=== PATIENT | male | born 1965 | race Caucasian/White ===

== ENCOUNTER 2022-11-15 09:22 | Inpatient (IN) | payer OTHER ==
--- OUTSIDE RECORDS SUMMARY | 2022-11-15 09:29 | XMS REPORT | Continuity of Care Document ---
:1965 Author Organization [facility] t Address [address] [place] [address] Care Team Providers Name Role Phone Maco Garcia MD Primary Care Physician [phone] Ynes Laguerre MD Attending Clinician Ryan SULLIVAN, Leon Schilling Attending Clinician Kellie SULLIVAN, Carmella Cruz Attending Clinician [phone] Gerardo YUSUF, Anastasiia Cerda Attending Clinician Michelle Cope Attending Clinician Unavailable Thomas Mcnair MD Attending Clinician Aron SULLIVAN, Phuc Willsonh Attending Clinician Santiago Bains MD Attending Clinician Tennille Burch DO Attending Clinician SARA_Evaristo Attending Clinician Unavailable Boyd Oakley NP Attending Clinician [phone] Thom Beebe MD Attending Clinician Germaine Kenny CRNA Attending Clinician Rip Alvarado Attending Clinician Nurse, Nichole Fam Pob I Attending Clinician Unavailable Alvaro Rivera MD Attending Clinician Pcp, Patient Does Not Have A Attending Clinician [phone] Lab, Adc Fam Pob I Attending Clinician Unavailable Jessica Leiva Attending Clinician JESSICA BONILLA Attending Clinician Unavailable Doctor Unassigned, [place] Attending Clinician Unavailable PHUC SHARP Admitting Clinician Unavailable Jesenia Admitting Clinician Unavailable LEON DAVIS Admitting Clinician Unavailable Payers Payer Name Policy Type Policy Number Effective Date Expiration Date Claudia higgins AET[employer] (POS) [id number] 2002 00:00:00 [employer] CHOICE POS [id number] 2018 00:00:00 II Problems Condition Condition Condition Status Onset Resolution Last Treating Co mments Source Name Details Category Date Date Treatment Clinician Date Other Other Disease Active Methodi acute acute 05-08 pulmonary pulmonary 00:00: Hosp timur embolism embolism 00 l without without acute cor acute cor pulmonale pulmonale Prostate Prostate Disease Active Metho di cancer cancer 04-29 st 00:00: Hospita 00 l 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 00:21:26 l (disorder) (disorder) He rmann Active Problem 03/02/2021 [facility] 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 Da n (disorder) (disorder) Active Problem 03/02/2021 [facility] Pain in Pain in Problem Active 2021-03-02 Me moria elbow elbow 00:21:26 l (finding) (finding) Herm reynold Active Problem 03/02/2021 [facility] Paresthesi Paresthes Problem Active 2021-03-02 Memoria a ia 00:21:26 l (finding) (finding) Herm reynold Active Problem 03/02/2021 [facility] Allergies, Adverse Reactions, Alerts Allergy Allergy Status Severity Reaction(s) Onset Inactive Treating Comm ents Source Name Type Date Date Clinician Ketorola Propensi Active Other (See Severe Me thodi c ty to Comments) 03-[address] adverse 00:00: on Hospita reaction 00 l s to drug Toradol Toradol Active Memoria l Jaime NO KNOWN Drug Active [facility] ALLERG[facility] of [facility] Social History Social Habit Start Date Stop Date Quantity Comments Source Exposure to Not sure [facility]-CoV-2 [facility] (event) Branch Alcohol intake 2022-06-28 2022-06-28 [facility] 00:00:00 00:00:00 non-drinker (finding) Tobacco use and 2022-04-13 2022-04-13 Smokeless tobacco [facility] exposure 00:00:00 00:00:00 non-user Social History 2020-11-03 2020-11-03 [facility] 21:54:11 21:54:11 Sex Ass[birth year] At [birth year] M [facility] 00:00:00 00:00:00 Smoking Status Start Date Stop Date Source Unknown if ever smoked [facility] Never smoked tobacco [facility] ospital Medications Ordered Filled Start Stop Current Ordering Indication Dosage Frequency Signature Comments Components Source Medication Medication Date Date Medication? Clinician (SIG) Name Name TADALAFIL Yes 25mg Q7D Take 25 mg Me thodi ORAL 7-[address] 12:46: once a Hospita 53 week. l Every Tuesday TADALAFIL Yes 7mg Take 7 mg Met hodi ORAL 7-[address] 12:46: take as Hospita 53 directed. l Daily Except Tuesday* acetaminoph Yes 650mg Q6H Take 650 M ethodi en 7-[address] (TYLENOL) 12:44: mouth Hospita 325 MG 44 every 6 l tablet (six) hours as needed for fever. ibuprofen Yes 200mg Q6H Take 200 Met hodi (ADVIL) 200 7-[address] MG tablet 12:22: mouth Hospita 09 every 6 l (six) hours as needed for mild pain. lansoprazol Yes 15mg Q24H Take 15 mg Methodi e 7-[address] (PREVACID) 12:22: daily as Hos richard 15 MG 09 needed. l capsule cephalexin 2021- No 500mg Q.25D Take 1 Me thodi (Keflex) 7-27 08-[address] 500 MG 00:00: 04:59 (500 mg Hospita capsule 00 :00 total) by l mouth 4 (four) times a day for 7 days. apixaban 2022-0 Yes 5mg Q.5D Take 1 Methodi (ELIQUIS) 5 7-04 tablet (5 st mg tablet 00:00: mg total) Hos richard 00 by mouth 2 l (two) times a day. benzonatate 2021- No 100mg Q.[id number] Take 1 Methodi (TESSALON) 05-[id number] 100 MG 00:00: 04:59 3D (100 mg Hospita capsule 00 :00 total) by l mouth 3 (three) times a day as needed for cough for up to 30 days. gabapentin 2021- No 300mg Q.[id number] Take 1 Methodi (NEURONTIN) 05-[id number] 300 mg 00:00: 04:59 3D (300 mg Hospita capsule 00 :00 total) by l mouth 3 (three) times a day for 30 days. polyethylen 2021- No 34g Q.5D Take 34 g Methodi e glycol 05-[address] (MIRALAX) 00:00: 04:59 (two) Hospit a 17 gram 00 :00 times a l packet day for 30 days. methocarbam 2021- No 750mg Q.25D Take 1 M ethodi oL 05-[address] (Robaxin-75 00:00: 04:59 (750 mg Ho spita 0) 750 MG 00 :00 total) by l tablet mouth 4 (four) times a day for 30 days. traMADoL 2021- [place] [address] 50mg Q.59884864 Take 1 Methodi (ULTRAM) 50 05-12 [id number] tablet (50 st mg tablet 00:00: 04:59 3D mg total) Ho spita 00 :00 by mouth 3 l (three) times a day for 10 days .acute pain. HYDROcodone 2021- [place] [id number] 1{tbl} Q6H Take 1 Methodi -acetaminop 05-[address] hen (NORCO) 00:00: 04:59 mouth Hosp timur 5-325 mg 00 :00 every 6 l per tablet (six) hours as needed for moderate pain for up to 10 days .acute pain. Max Daily Amount: 4 tablets apixaban 2021- No 10mg Q.5D Take 2 Method i (ELIQUIS) 5 05-12 07-[address] mg tablet 00:00: 04:59 (10 mg Hospi ta 00 :00 total) by l mouth 2 (two) times a day for 4 days. docusate 2021- No 100mg Q.5D Take 1 Metho di sodium 04-30-[address] (Colace) 00:00: 04:59 (100 mg Hospi ta 100 MG 00 :00 total) by l capsule mouth 2 (two) times a day for 30 days. traMADoL 2021- [place] [id number] 50mg Q6H Take 1 Metho di (ULTRAM) 50 04-30- tablet (50 s t mg tablet 00:00: 00:00 mg total) Ho spita 00 :00 by mouth l every 6 (six) hours as needed for moderate pain for up to 10 days .acute pain. ciprofloxac 2021- No 500mg Q.5D Take 1 Me thodi in (Cipro) 04-30-[address] 500 MG 00:00: 04:59 (500 mg Hospita tablet 00 :00 total) by l mouth 2 (two) times a day for 5 days. Start taking antibiotic 1 day before your appointmen t for blanco catheter removal. ciprofloxac 2021- No 500mg Q.5D Take 500 Methodi in (CIPRO) 04-27-[address] 500 MG 00:00: 00:00 mouth 2 Hospita tablet 00 :00 (two) l times a day. tadalafiL 2021- No 5mg QD Take 1 Metho di (CIALIS) 5 -31 11-28 tablet (5 st MG tablet 00:00: 05:59 mg total) Ho spita 00 :00 by mouth l daily for 180 days. tadalafiL 2021-0 2021- No 20mg Q1W Take 1 Metho di (CIALIS) 20 5-31 11-28 tablet (20 s t mg tablet 00:00: 05:59 mg total) Ho spita 00 :00 by mouth l every 7 days for 180 days. meloxicam Yes TAKE 1 Method i (MOBIC) 7.5 -[address] mg tablet 00:00: TIMES Hospita 00 DAILU WITH l FOOD AFTER STERIODS ARE COMPLETED predniSONE 2021- No TAKE 6 Meth eduard (DELTASONE) 03-15 TABLETS ON s t 10 mg 00:00: 00:00 DAY 1 AND Hospit a tablet pack 00 :00 DECREASE l BY 1 TAB EACH DAY FOR A TOTAL OF 6 DAYS IN A DOSE PACK meloxicam 2021- No Methodi (MOBIC) 7.5 03-15- st mg tablet 00:00: 00:00 Hospita 00 :00 l levoFLOXaci 2021- No 750mg Take 750 Methodi n 01-[address] (LEVAQUIN) 00:00: 00:00 mouth. Hosp timur 750 MG 00 :00 l tablet methylPREDN 2020-11- No Take as Me thodi ISolone 12-[address] (MEDROL 00:00: 00:00 on Hospita DOSEPAK) 4 00 :00 package. l mg tablet montelukast 2020-11- No 10mg Take 10 mg Methodi (SINGULAIR) 12-[address] 10 mg 00:00: 00:00 Hospita tablet 00 :00 l clonAZEPAM 2020-11 Yes .5mg QD Take 0.5 Met hodi (KlonoPIN) 1-[address] 0.5 MG 00:00: mouth Hospita tablet 00 nightly. l Per [place] [facility] on Drug Monitoring Program records: Last filled: 04/08/22 Quantity: 90 Days Supply: 90Has not restarted since holding five days prior to surgery on 04/30/22 Immunizations Ordered Immunization Filled Immunization Date Status Commen ts Source Name Name PFIZER COVID-19 MRNA 2022-08-30 Completed Meth odist VACCINATION 00:00:00 [facility] PFIZER COVID-19 MRNA 2021-10-15 Completed Meth odist VACCINATION 00:00:00 [facility] PFIZER COVID-19 MRNA 2021-02-28 Completed Meth odist VACCINATION 00:00:00 [facility] PFIZER COVID-19 MRNA 2021-02-08 Completed Meth odist VACCINATION 00:00:00 Hospital Vital Signs Vital Name Observation Time Observation Value Comments Source Systolic blood 2022-06-11 21:00:00 113 mm[Hg] [facility] pressure Diastolic blood 2022-06-11 21:00:00 66 mm[Hg] [facility] pressure Heart rate 2022-06-11 21:00:00 61 /min [facility] Respiratory rate 2022-06-11 21:00:00 16 /min [facility] Oxygen saturation in 2022-06-11 21:00:00 96 /min [facility] Arterial blood by Pulse oximetry Body temperature 2022-06-11 20:21:00 36.78 Bernadette [facility] Body height 2022-06-11 17:51:00 188 cm [facility] Body weight 2022-06-11 17:51:00 99.791 kg [facility] BMI 2022-06-11 17:51:00 28.25 kg/m2 [facility] Systolic (mm Hg) 2021-02-27 19:33:00 Harshad rial [place] Diastolic (mm Hg) 2021-02-27 19:33:00 [facility] orial Jaime Heart Rate 2021-02-27 19:33:00 [facility] Respitory Rate 2021-02-27 19:33:00 Memori al Jaime Weight 2021-02-27 19:33:00 [facility] Jaime Systolic (mm Hg) 2020-11-03 21:27:00 Harshad rial [place] Diastolic (mm Hg) 2020-11-03 21:27:00 [facility] orial [place] Heart Rate 2020-11-03 21:27:00 [facility] [place] Respitory Rate 2020-11-03 21:27:00 Memori al Jaime Height 2020-11-03 21:27:00 187.96 cm [facility] [place] Weight 2020-11-03 21:27:00 [facility] Jaime BMI Calculated 2020-11-03 21:27:00 Memori al [place] Procedures Procedure Date / Time Performing Clinician Source Performed US DUPLEX VENOUS LOWER 2022-09-08 19:30:00 Ynes Laguerre [facility] EXTREMITY BILATERAL PSA, ULTRASENSITIVE 2022-06-28 15:07:00 Leon Davis [facility] IR CATHETER TUBE CHANGE 2022-06-11 20:33:42 [facility] Anthony IR 3D RECON SLICES 2022-06-11 20:33:42 [facility] SNAPSHOTS RDMPS Anthony IR SCLEROTHERAPY FLUID 2022-06-09 20:14:00 Leon Davis [facility] COLLECTION CT PELVIS W CONTRAST 2022-05-21 19:15:00 Ryan Leon [facility] CBC WITH PLATELET AND 2022-05-12 10:21:00 [facility] DIFFERENTIAL BASIC METABOLIC PANEL 2022-05-12 10:21:00 [facility] ESTIMATED GFR 2022-05-12 10:21:00 [facility] SMEAR REVIEW 2022-05-12 10:21:00 [facility] CBC WITH PLATELET AND 2022-05-11 09:16:00 Aron [facility] DIFFERENTIAL BASIC METABOLIC PANEL 2022-05-11 09:16:00 [facility] ESTIMATED GFR 2022-05-11 09:16:00 [facility] PARTIAL THROMBOPLASTIN 2022-05-10 15:20:00 [facility] TIME (PTT) CREATININE LEVEL, [facility] 2022-05-10 10:30:00 En Child [facility] FLUID ZZCOVID-19 ANTI-SPIKE IGG 2022-05-10 08:37:00 Leo [facility] ANTIBODY TITER Farhan CBC WITH PLATELET AND 2022-05-10 08:37[facility] BASIC METABOLIC PANEL 2022-05-10 08:37:00 [facility] ZZCOVID-19 SEROLOGY 2022-05-10 08:37:00 Leo [facility] PATIENT SURVEILLANCE Farhan PARTIAL THROMBOPLASTIN 2022-05-10 08:37:00 [facility] TIME (PTT) ESTIMATED GFR 2022-05-10 08:37:00 Lock, [facility] PARTIAL THROMBOPLASTIN 2022-05-09 23:52:00 [facility], [facility] TIME (PTT) CT GUIDED ABSCESS DRAIN 2022-05-09 17:12:07 [facility] AEROBIC CULTURE 2022-05-09 16:20:00 Lock, [facility] ANAEROBIC CULTURE 2022-05-09 16:20:00 Lock, [facility] GRAM STAIN 2022-05-09 16:20:00 Lock, [facility] TTE COMPLETE, W CONTRAST, 2022-05-09 14:39:00 Lock, [facility] W DOPPLER ([id number]) PARTIAL THROMBOPLASTIN 2022-05-09 13:32:00 Thomas Mcnair [facility] TIME (PTT) CBC WITH PLATELET AND 2022-05-09 09:02:00 [facility], [facility] DIFFERENTIAL BASIC METABOLIC PANEL 2022-05-09 09:02:00 Lock, [facility] ESTIMATED GFR 2022-05-09 09:02:00 [facility], [facility] PARTIAL THROMBOPLASTIN 2022-05-09 04:59:00 Thomas Mcnair [facility] TIME (PTT) US DUPLEX VENOUS LOWER 2022-05-08 18:30:00 [facility] EXTREMITY BILATERAL LACTIC ACID LEVEL, SEPSIS 2022-05-08 17:17:00 Thomas Mcnair [facility] - NOW AND REPEAT 2X EVERY 3 HOURS PARTIAL THROMBOPLASTIN 2022-05-08 17:17:00 Thomas Mcnair [facility] TIME (PTT) PROTHROMBIN TIME WITH INR 2022-05-08 17:17:00 Thomas Mcnair Ryne [facility] ANTI XA, UNFRACTIONATED 2022-05-08 17:17:00 Thomas Mcnair [facility] CT ABDOMEN PELVIS W 2022-05-08 15:08:29 [facility] CONTRAST CT ANGIOGRAM PE CHEST 2022-05-08 15:08:07 [facility] BLOOD CULTURE, AEROBIC & 2022-05-08 13:03:00 [facility] ANAEROBIC RESPIRATORY PATHOGEN 2022-05-08 13:03:00 [facility] PANEL WITH COVID-19 RT-PCR LACTIC ACID LEVEL, SEPSIS 2022-05-08 13:03:00 [facility] - NOW AND REPEAT 2X EVERY 3 HOURS BLOOD CULTURE, AEROBIC & 2022-05-08 13:00:00 [facility] ANAEROBIC ECG ED PRELIMINARY 2022-05-08 11:18:28 [facility] INTERPRETATION URINE CULTURE 2022-05-08 10:53:00 [facility] XR ABDOMEN 1 VW PORTABLE 2022-05-08 10:45:00 [facility] XR CHEST 1 VW PORTABLE 2022-05-08 10:36:00 [facility] CBC WITH PLATELET AND 2022-05-08 10:17:00 [facility] DIFFERENTIAL COMPREHENSIVE METABOLIC 2022-05-08 10:17:00 [facility] PANEL LIPASE LEVEL 2022-05-08 10:17:00 [facility] URINALYSIS SCREEN AND 2022-05-08 10:17:00 [facility] MICROSCOPY, WITH REFLEX TO CULTURE ESTIMATED GFR 2022-05-08 10:17:00 [facility] FL CYSTOGRAM MINIMUM 3 VW 2022-05-06 14:05:00 Leon Davis [facility] HEMOGLOBIN 2022-04-30 09:34:00 Eliezer Mccain [facility] HEMATOCRIT 2022-04-30 09:34:00 Kal[facility] BASIC METABOLIC PANEL 2022-04-30 09:34:00 [facility] ESTIMATED GFR 2022-04-30 09:34:00 [facility] 2022-04-29 21:38:00 [facility] HEMOGLOBIN 2022-04-29 21:38:00 [facility] BASIC METABOLIC PANEL 2022-04-29 21:38:00 [facility] ESTIMATED GFR 2022-04-29 21:38:00 [facility] 2022-04-29 19:22:00 Leon Davis [facility] REQUEST LA AN ELECTIVE 2022-04-29 17:53:00 [facility] ENDOTRACHEAL AIRWAY Gena PROSTATECTOMY, 2022-04-29 17:48:00 [facility] LAPAROSCOPIC, ROBOT-ASSISTED HC NERVE BLOCK QUADRATUS 2022-04-29 17:42:07 Thom Isaac [facility] LUMBORUM ABO AND RH CONFIRMATION 2022-04-29 15:37:00 Leon Davis [facility] BY PROTOCOL COVID-19 QUALITATIVE 2022-04-26 18:37:00 [facility]-PCR TESTOSTERONE LEVEL, FREE 2022-04-13 15:32:00 CeleBoyd reeves [facility] AND TOTAL, MALE Sue TYPE AND SCREEN 2022-04-13 15:32:00 [facility] HIV 1/2 ANTIGEN/ANTIBODY, 2022-04-13 15:32:00 [facility] FOURTH GENERATION, WITH Sue REFLEXES COMPREHENSIVE METABOLIC 2022-04-13 15:32:00 [facility] PANEL Sue CBC WITH PLATELET AND 2022-04-13 15:32:00 [facility] Boyd [facility] DIFFERENTIAL Sue PROTHROMBIN TIME WITH INR 2022-04-13 15:32:00 [facility] PARTIAL THROMBOPLASTIN 2022-04-13 15:32:00 [facility] TIME (PTT) Sue ESTIMATED GFR 2022-04-13 15:32:00 Boyd Oakley kip Rogers HEMOGLOBIN A1C 2022-04-13 15:32:00 Aneudy Marscy Lucille [facility] URINE CULTURE 2022-04-13 15:27:00 Boyd Oakley kip Rogers URINALYSIS SCREEN AND 2022-04-13 15:27:00 Center [facility]wichBoyd [facility] MICROSCOPY, WITH REFLEX Sue TO CULTURE MRI PROSTATE WWO CONTRAST 2022-03-29 00:00:00 Leon Davis [facility] Laminectomy for [facility] decompression and exploration Plan of Care Planned Activity Planned Date Details Comments Source Future Scheduled 2022-11-15 Pneumococcal Vaccine: [facility] Test 09:26:08 Pediatrics (0 to 5 Years) and At-Risk Patients (6 to 64 Years) (1 - PCV) [code = Pneumococcal Vaccine: Pediatrics (0 to 5 Years) and At-Risk Patients (6 to 64 Years) (1 - PCV)] Future Scheduled 2022-11-15 Hepatitis C screening [facility] Test 09:26:08 (procedure) [code = 936138936] Future Scheduled 2022-11-15 COLONOSCOPY SCREENING [facility] Test 09:26:08 [code = COLONOSCOPY SCREENING] Future Scheduled 2022-11-15 SHINGLES VACCINES (1 Met [facility] Test 09:26:08 of 2) [code = SHINGLES VACCINES (1 of 2)] Future Scheduled 2022-11-15 INFLUENZA VACCINE Method [facility] Test 09:26:08 [code = INFLUENZA VACCINE] Future Scheduled 2022-11-15 COVID-19 VACCINE (5 - [facility] Test 09:26:08 Booster for Pfizer series) [code = COVID-19 VACCINE (5 - Booster for Pfizer series)] Encounters Start End Encounter Admission Attending Care Care Encounter Source Date/Time Date/Time Type Type Clinicians Facility Department ID 2022-09-08 2022-09-08 [facility] Ynes Laguerre 1.2.840.1 [id number] Methodi 12:52:06 23:59:00 Encounter Karolina 48681.1.[address] 3.430.2.7 Hospit a .3.102092 l .8 2022-09-08 2022-09-08 Travel 1.2.840.1 1.2.647.504 [id number] [id number] Methodi 00:00:00 00:00:[address] 3.430.2.7 0.2.7.3.698 Ho spita .3.434805 084.8 l .8 2022-09-08 2022-09-08 Raquel Ynes [facility] [id number] [place] 00:00:00 00:00:[address] 2022-08-27 2022-08-27 Travel 1.2.840.1 1.2.964.569 [id number] Methodi 00:00:00 00:00:[address] 3.430.2.7 0.2.7.3.698 Ho spita .3.387236 084.8 l .8 2022-08-10 2022-08-10 Ynes Dejesus 1.2.840.1 [id number] Methodi 00:00:00 00:00:00 Only Karolina 68658.1.[address] 3.430.2.7 Hospit a .3.535444 l .8 2022-06-28 2022-06-28 Office Miles, 1.2.840.1 [id number] Methodi 09:15:00 10:01:01 Visit Leon Schilling 08757.1.[address] 3.430.2.7 Hospit a .3.427107 l .8 2022-06-28 2022-06-28 Travel 1.2.840.1 1.2.639.567 [id number] [id number] Methodi 00:00:00 00:00:[address] 3.430.2.7 0.2.7.3.698 Ho spita .3.003682 084.8 l .8 2022-06-28 2022-06-28 Outpatient [facility] [id number] [place] 00:00:00 00:00:00 LEON Perez [facility] 2022-06-16 2022-06-16 Travel 1.2.840.1 1.2.635.545 5066 [id number] Methodi 00:00:00 00:00:[address] 3.430.2.7 0.2.7.3.698 Ho spita .3.193201 084.8 l .8 2022-06-15 2022-06-15 [facility] 1.2.840.1 [id number] [id number] Methodi 00:00:00 00:00:00 Leon Schilling 62713.1.[address] 3.430.2.7 Hospit a .3.546993 l .8 2022-06-11 2022-06-11 [facility] 1.2.840.1 [id number] Methodi 12:08:02 23:59:00 Carmella Lackey 03387.1.1 517 s t Anthony 3.430.2.7 Hospit a .3.997112 l .8 2022-06-11 2022-06-11 Travel 1.2.840.1 1.2.989.141 5673 [id number] Methodi 00:00:00 00:00:[address] 3.430.2.7 0.2.7.3.698 Ho spita .3.667288 084.8 l .8 2022-06-11 2022-06-11 [facility] 450 [id number] [place] 00:00:00 00:00:00 , CARMELLA [address] 2022-06-09 2022-06-09 [facility] 1.2.840.1 [id number] Methodi 11:08:42 23:59:00 Encounter Leon Schilling 18872.1.1 005 s t 3.430.2.7 Hospit a .3.254607 l .8 2022-06-09 2022-06-09 Orders Gerardo, 1.2.840.1 [id number] Methodi 00:00:00 00:00:00 Only Anastasiia 56403.1.[address] Zaida 3.430.2.7 Hospit a .3.242777 l .8 2022-06-09 2022-06-09 Travel 1.2.840.1 1.2.367.916 8655 [id number] Methodi 00:00:00 00:00:[address] 3.430.2.7 0.2.7.3.698 Ho spita .3.625686 084.8 l .8 2022-06-09 2022-06-09 [facility] [id number] [place] 00:00:00 00:00:00 LEON Marks [facility] i [facility] 2022-06-01 2022-06-01 Transcribe [facility] 1.2.840.1 [id number] Methodi 00:00:00 00:00:00 Orders Leon Schilling 91098.1.[address] 3.430.2.7 Hospit a .3.741901 l .8 2022-06-01 2022-06-01 Travel 1.2.840.1 1.2.535.594 1838 [id number] Methodi 00:00:00 00:00:[address] 3.430.2.7 0.2.7.3.698 Ho spita .3.909796 084.8 l .8 2022-05-26 2022-05-26 Telephone Anatoliy, 1.2.840.1 [id number] [id number] Methodi 00:00:00 00:00:[address] 3.430.2.7 Hospit a .3.952763 l .8 2022-05-26 2022-05-26 Telephone Anatoliy, 1.2.840.1 [id number] 2099 [id number] Methodi 00:00:00 00:00:[address] 3.430.2.7 Hospit a .3.611787 l .8 2022-05-21 2022-05-21 [facility], 1.2.840.1 [id number] Methodi 13:17:34 23:59:00 Encounter Leon Schilling 84394.1.1 039 s t 3.430.2.7 Hospit a .3.099226 l .8 2022-05-21 2022-05-21 Travel 1.2.840.1 1.2.153.987 0215 [id number] Methodi 00:00:00 00:00:[address] 3.430.2.7 0.2.7.3.698 Ho spita .3.663258 084.8 l .8 2022-05-21 2022-05-21 Outpatient [facility] [id number] [address] [place] [address] 00:00:00 00:00:00 LEON Palacios [facility] i [facility] 2022-05-18 2022-05-18 Travel 1.2.840.1 1.2.913.841 [id number] Methodi 00:00:00 00:00:[address] 3.430.2.7 0.2.7.3.698 Ho spita .3.751980 084.8 l .8 2022-05-18 2022-05-18 Telephone Miles, 1.2.840.1 [id number] 2099 [id number] Methodi 00:00:00 00:00:00 Leon Schilling 89868.1.[address] 3.430.2.7 Hospit a .3.516033 l .8 2022-05-08 2022-05-12 [facility] 1.2.840.1 [id number] Methodi 04:24:00 12:53:00 Encounter Phuc Sharp [facility] 42661.1.[address] Nara Santiago 3.430.2.7 H [place]ille White .3.327612 l .8 2022-05-12 2022-05-12 Telephone Miles, 1.2.840.1 [id number] [id number] Methodi 00:00:00 00:00:00 Leon Schilling [address]20.1.[address] 3.430.2.7 Hospit a .3.855440 l .8 2022-05-08 2022-05-12 Inpatient RENETTA, [facility] [place] 064 [id number] [place] 00:00:00 00:00:00 TENNILLE Penaloza8 Mara betito 2022-05-07 2022-05-07 Outpatient SARA_Farhan AOSM AOSM [id number] [place] 12:00:00 12:00:00 [place] [id number] [facility] 2022-05-06 2022-05-06 [facility] [place], 1.2.840.1 [id number] Methodi 08:00:00 23:59:00 Encounter Leon Schilling 08220.1.1 456 s t 3.430.2.7 Hospit a .3.118022 l .8 2022-05-06 2022-05-06 Office [facility] [place], 1.2.840.1 [id number] 12490 Methodi 09:30:00 10:00:00 Visit Boyd 06432.1.[address] [place] 3.430.2.7 Hospit a .3.948083 l .8 2022-05-06 2022-05-06 Travel 1.2.840.1 1.2.823.396 8447 [id number] Methodi 00:00:00 00:00:[address] 3.430.2.7 0.2.7.3.698 spita .3.770965 084.8 l .8 2022-05-06 2022-05-06 Outpatient RYAN, [facility] [id number] [place] 00:00:00 00:00:00 LEON Arriola Method i 2022-05-06 2022-05-06 Outpatient [facility] [id number] [place] 00:00:00 00:00:[address] 2022-05-01 2022-05-01 Outpatient SARA_Farhan ANTONIO AO 562 [id number] [place] 01:39:00 01:39:00 [place] 231035 Orth ope dic Sports Medicin e 2022-04-29 2022-04-30 [facility] [place], 1.2.840.1 [id number] 67782 49686 Methodi 09:46:00 18:37:00 Encounter Leon Schilling 48236.1.1 975 s t 3.430.2.7 Hospit a .3.733968 l .8 2022-04-29 2022-04-30 Outpatient [facility] 233 [id number] 142 [place] 00:00:00 00:00:00 LEON [address] 2022-04-29 2022-04-29 Surgery [place], 1.2.840.1 [id number] [id number] 2612 Methodi 12:30:00 17:20:00 Leon Schilling 86169.1.[address] 3.430.2.7 Hospit a .3.513315 l .8 2022-04-29 2022-04-29 Anesthesia Thom Isaac 1.2.840.1 [id number] Methodi 12:48:00 16:38:00 Event Germaine Kenny 79131.1.[address] 3.430.2.7 Hospit a .3.983554 l .8 2022-04-26 2022-04-26 [facility] 1.2.840.1 [id number] 5116 Methodi 14:00:00 14:10:00 Leon Schilling 28748.1.[address] 3.430.2.7 Hospit a .3.752751 l .8 2022-04-26 2022-04-26 [facility] [id number] [place] 00:00:00 00:00:00 LEON [address] 2022-04-20 2022-04-20 Travel 1.2.840.1 1.2.154.108 3111 [id number] Methodi 00:00:00 00:00:[address] 3.430.2.7 0.2.7.3.698 Ho spita .3.849890 084.8 l .8 2022-04-13 2022-04-13 Pre-Admiss [place], 1.2.840.1 [id number] 939 [id number] Methodi 12:30:00 13:30:00 ion Leon Schilling 32443.1.[address] Testing 3.430.2.7 Hospit a .3.174709 l .8 2022-04-13 2022-04-13 Office [place], 1.2.840.1 [id number] 81677 Methodi 08:00:00 08:30:00 Visit Boyd 02542.1.[address] Sue 3.430.2.7 Hospit a .3.318183 l .8 2022-04-13 2022-04-13 Travel 1.2.840.1 1.2.133.316 9307 [id number] Methodi 00:00:00 00:00:[address] 3.430.2.7 0.2.7.3.698 Ho spita .3.397031 084.8 l .8 2022-04-13 2022-04-13 Outpatient [facility] [id number] [place] 00:00:00 00:00:[address] 2022-04-13 2022-04-13 Outpatient DOVER, [facility] [id number] 218 [place] 00:00:00 00:00:00 LEON [address] 2022-04-01 2022-04-01 Orders [place], 1.2.840.1 [id number] 9042 Methodi 00:00:00 00:00:00 Only Leon Schilling 34701.1.[address] 3.430.2.7 Hospit a .3.991203 l .8 2022-03-19 2022-03-19 Telephone [place], 1.2.840.1 [id number] 2100 692182 Methodi 00:00:00 00:00:00 Leon Schilling 52437.1.[address] 3.430.2.7 Hospit a .3.533374 l .8 2022-03-19 2022-03-19 Transcribe [place], 1.2.840.1 [id number] 029 [id number] Methodi 00:00:00 00:00:00 Orders Leon Schilling 65065.1.[address] 3.430.2.7 Hospit a .3.635639 l .8 2022-03-15 2022-03-15 Telephone [place], 1.2.840.1 [id number] 2100 [id number] Methodi 00:00:00 00:00:00 Leon E[address]reeti [address] 3.430.2.7 Hospit a .3.283927 l .8 2022-03-15 2022-03-15 Travel 1.2.840.1 1.2.159.628 1575 [id number] Methodi 00:00:00 00:00:[address] 3.430.2.7 0.2.7.3.698 Ho spita .3.096087 084.8 l .8 2022-03-12 2022-03-12 Orders [place], 1.2.840.1 [id number] 656923 0162 Methodi 00:00:00 00:00:00 Only Leon Schilling 46043.1.[address] 3.430.2.7 Hospit a .3.498484 l .8 2022-03-10 2022-03-10 Office [place], 1.2.840.1 [id number] 669805 9449 Methodi 11:00:00 12:20:15 Visit Leon JPreeti 33341.1.[address] 3.430.2.7 Hospit a .3.722782 l .8 2022-03-10 2022-03-10 Travel 1.2.840.1 1.2.474.767 0372 098657 Methodi 00:00:00 00:00:[address] 3.430.2.7 0.2.7.3.698 Ho spita .3.308254 084.8 l .8 2022-03-10 2022-03-10 Outpatient [facility] [id number] [address] [place] [address] 00:00:00 00:00:00 LEON [address] 2021-03-01 2021-03-01 Outpatient [facility] [id number] Univers 13:35:00 13:35:00 [facility] 2021-02-28 2021-02-28 Outpatient [facility] [id number] Univers 13:35:00 13:35:00 [facility] 2021-02-27 2021-02-28 Outpatient nullFlavo MNA [id number] Memoria 19:15:00 04:59:59 r Neurology 03 l Landers Jaime 2021-02-27 2021-02-28 Outpatient nullFlavo MNA [id number] Memoria 19:15:00 04:59:59 r Neurology 03 l Arlen Sandoval 2021-02-27 2021-02-27 Outpatient ZOË AlvaradoSCHER MHMISCHER [id number] 14:15:00 23:59:59 Rip Natalia Real 2021-02-27 2021-02-27 Outpatient MHIE MHIE [id number] [place] 14:15:00 14:15:00 03 christian Sandoval 2021-02-08 2021-02-08 Outpatient [facility] [id number] Univers 13:40:00 13:40:00 [facility] 2020-12-12 2020-12-12 Ambulatory nullFlavo MNA [id number] Memoria 19:00:00 19:00:00 Pre-Reg r Neurology 01 l Landers Jaime 2020-12-12 2020-12-12 Ambulatory nullFlavo MNA [id number] Memoria 19:00:00 19:00:00 Pre-Reg r Neurology 01 l Arlen Sandoval 2020-12-12 2020-12-12 Outpatient MHIE MHIE [id number] [facility]oria 13:00:00 13:00:00 01 christian Sandoval 2020-12-12 2020-12-12 Outpatient ZOË AlvaradoSCHER MHMISCHER 871 [id number] 13:00:00 13:00:00 Rip Aimee Real 2020-11-27 2020-11-27 Outpatient MHIE MHIE [id number] Memoria 08:15:00 08:15:00 02 christian Sandoval 2020-11-27 2020-11-27 Outpatient MHIE MHIE [id number] Memoria 08:15:00 08:15:00 02 l Jaime 2020-11-03 2020-11-04 Outpatient nullFlavo MNA [id number] Memoria 21:30:00 05:59:59 r Neurology 00 l Arlen Sandoval 2020-11-03 2020-11-04 Outpatient nullFlavo MNA [id number] Memoria 21:30:00 05:59:59 r Neurology 00 l Arlen Jaime 2020-11-03 2020-11-03 [facility] [id number] 15:30:00 23:59:59 Rip 00 Farhan 2020-11-03 2020-11-03 Outpatient MHIE MHIE [id number] [place] 15:30:00 15:30:00 00 l [place] 2020-10-24 2020-10-24 Telephone Nurse, [facility] 1.2.840.114 [id number] Univers 00:00:00 00:00:00 Fam Pob I Health 350.1.13.10 [place] 4.2.7.2.686 El as Professio [phone] [facility] [address] 2020-10-18 2020-10-18 Letter VAL Rivera 1.2.840.114 [id number] Univers 00:00:00 00:00:00 (Out) Alvaro New SETH 350.1.13.10 i ty of HOSPITAL 4.2.7.2.686 El as [phone] [address] 2020-10-17 2020-10-17 Telephone PcpVAL 1.2.000.935 2007 [id number] Univers 00:00:00 00:00:00 Patient SETH 350.1.13.10 it y of Does Not HOSPITAL 4[place].2.686 [place] A [id number] [address] 2020-10-15 2020-10-15 Laboratory Lab, [facility] Fam Pob I [facility] 1.2. 840.114 [id number] Univers 14:30:42 14:50:42 Only Jessica [facility] 350.1.13.10 [place] 4.2.7.2.686 El as Professio [phone] La dical nal [address] 2020-10-15 2020-10-15 Outpatient R CHAD [facility] [id number] Univers 14:40:00 14:40:00 JESSICA ity of [facility] 2020-10-15 2020-10-15 Letter Doctor VAL 1.2.840.114 [id number] Univers 00:00:00 00:00:00 (Out) Unassigned, SETH 350.1.13.10 ity of [place] [facility] 4.2.7.2.686 El as [phone] [facility] [address] Results Test Description Test Time Test Comments Results Result Comments Source PSA, ultrasensitive 2022-06-29 13:11:00 Test Item Value Reference Range Interpretation Comme nts PSA, ultrasensitive 0.009 ng/mL 0.000-4.000 Debra EC [place] (test code = 17364-0) method ology.According to the [place] [employer], Se rum PSA shoulddecrease and remain at undetectable le vels after radicalprostate ctomy. The AUA defines biochem ical recurrence as an initialPS A value 0.200 ng/mL or greate r followed by a subsequentconfi rmatory PSA value 0.200 ng/ mL or greater.Values obtained with different assay methods or kits cannot be usedinterchange ably. Results cannot be inter preted as absolute eviden ceof the presence or abs ence of malignant disea se. OSWALDO (test code = OSWALDO) Performed at: [address] [place] [address] [id number] Director: Rickie Menezes MD, Phone: [phone] [facility] [id number] 23:20:25 Test Item Value Reference Range Interpretation Comments Case number (test [id number] code = 4695548) Surgical pathology See link below for PDF report (test code = Lab Report 2255) Result status (test This is Supplemental code = 4552373) Report for [id number] [facility] [id number] 13:13:00 Test Item Value Reference Range Interpretation Comments Anaerobic No anaerobic Specimen culture isolate organisms InformationS pecimen (test code = isolated. Source: FluidS ecimen 58084-2) [id number] 19:24:00 Test Item Value Reference Range Interpretation Comments Aerobic culture No growth Specimen isolate (test after 3 days. InformationSp imen code = 61427-2) Source: Flui dSpecimen Site: [facility] [id number] 19:59:00 Test Item Value Reference Range Interpretation Comments Gram stain No organisms Specimen isolate (test [facility] code = 1469) Source: FluidSp ecimen Site: [facility] [id number] 18:16:00 Test Item Value Reference Range Interpretation Comments Urine culture No growth Specimen isolate (test after 24 Informatione [facility] code = 67267-9) hours Source: Urin eSpecimen Site: Clean cat ch [facility]OVID[facility] qualitative [id number] 03:58:09 Test Item Value Reference Interpretation Comments Range Interpretation (test Negative results do not code = 2918183) preclude COVID-19 infection and should not be used asthe sole basis for treatment or other patient management decisions. Negativeresults must be combined with clinical observations, patient history, andepidemiological information. COVID-19 qualitative Not-Detected Not-Detected RT-PCR result (test code = 84944-3) COVID-19 qualitative See link below for PDF Case Number: RT-PCR (test code = Lab Report [id number]) [facility] RNA [Presence] in Respiratory specimen by VERONIKA with probe [id number] 22:58:09 Test Item Value Reference Range Interpretation Comments SARS-CoV-2 (COVID-19) RNA Not detected [Presence] in Respiratory specimen by VERONIKA with probe detection (test code = 11406-6) Whether patient is employed in a Unknown healthcare setting (test code = 12397-3) Whether the patient has symptoms Unknown related to condition of interest (test code = 67156-0) Whether the patient was Unknown hospitalized for condition of interest (test code = 75046-6) Whether the patient was admitted Unknown to intensive care unit (ICU) for condition of interest (test code = 86953-7) Whether patient resides in a Unknown congregate care setting (test code = 48403-3) status (test code = Unknown 45147-2) Date and time of symptom onset Unknown (test code = 75428-0) DEXTER CALHOUN
[2022-11-15 10:31] LABS: Absolute Lymphocytes (CBC) 1.1 K/uL (0.7-4.9); Hematocrit 43.8 % (39.6-49.0); MCV 84.5 fL (80-100); MPV 8.5 fL (7.6-11.3); RBC Red Blood Cell Count 5.19 M/uL (4.33-5.43)
[2022-11-15 10:54] LABS: Albumin 3.7 g/dL (3.4-5.0); Bilirubin Total 0.6 mg/dL (0.2-1.0); Potassium 3.7 mmol/L (3.5-5.1); Protein, Total 7.8 g/dL (6.4-8.2); Troponin High Sensitivity 5.6 pg/mL (<58.9)
[2022-11-15 11:12] LABS: SARS-COV-2 RT PCR NEGATIVE (NEGATIVE)
--- NOTE | 2022-11-15 11:22 | RAD REPORT ---
EXAM DESCRIPTION: CT - Chest For Pe Angio - 11/15/2022 11:05 am CLINICAL HISTORY: sob, fever COMPARISON: Abdomen Pelvis W Contrast dated 11/15/2022 TECHNIQUE: Dynamically enhanced 3 mm thick images of the chest were obtained during administration o f approximately 150mL Isovue 370 IV contrast. Coronal and oblique MIP reconstruction images were gene rated and reviewed. Exam utilizes a protocol to evaluate the pulmonary arterial tree. All CT scans are performed using dose optimization technique as appropriate and may include automated exposure control or mA/KV adjustment according to patient size. FINDINGS: No pulmonary emboli are identified. The aorta as imaged shows no acute or suspicious finding. No pericardial thickening or effusion. No infiltrate or mass in the lung parenchyma. Minimal atelectasis in each posterior gutter No pleural effusion or pleural thickening. No mediastinal or hilar suspicious masses. No endobronchial lesions identified. No chest wall masses or abnormal axillary lymphadenopathy. IMPRESSION: No pulmonary emboli identified. No other significant or suspicious findings.
--- NOTE | 2022-11-15 11:26 | RAD REPORT ---
EXAM DESCRIPTION: CT - Abdomen Pelvis W Contrast - 11/15/2022 11:05 am CLINICAL HISTORY: abdominal pain, fever COMPARISON: CT ABD PELVIS W CONTRAST dated 04/23/2013 TECHNIQUE: Biphasic, helical CT imaging of the abdomen and pelvis was performed following 100 ml non -ionic IV contrast. Oral contrast: No. All CT scans are performed using dose optimization technique as appropriate and may include automated exposure control or mA/KV adjustment according to patient size. FINDINGS: No suspicious findings in the lung bases. Liver and spleen show no suspicious findings. Liver attenuation is borderline for fatty infiltration. Cholecystectomy clips are present. No abnormal biliary tree dilatation. No solid or cystic mass seen in the pancreatic parenchyma. No CT findings of pancreatitis. Symmetric renal function is seen with no hydronephrosis or suspicious renal mass. No pyelonephritis o r acute parenchymal process. No bladder abnormalities. No adrenal abnormalities. No dilated bowel loops or bowel wall thickening. Sigmoid colon is redundant extending to the anterior upper abdomen at the umbilical level. Moderate stool volume is seen from cecum to splenic flexure. A n acute colon process is not seen. No appendicitis findings. Appendectomy clip is evident. No free ai r, free fluid or inflammatory stranding. No mass or bulky lymphadenopathy. A less than 10 mm fat onl y umbilical hernia is present. Fat extends into the origin of each inguinal canal. No acute or pathologic bone finding. Disc bulge and endplate spurring changes are present at L5-S1. M ild foraminal stenosis present at this level. IMPRESSION: Contrast enhanced CT abdomen and pelvis showing no acute or emergent finding.
[2022-11-15] MEDS ORDERED: ONDANSETRON 4 MG/2 ML VIAL ONE (12:20)
[2022-11-15] MEDS ORDERED: Ringers Lactate 1,000 ML IV ONE (12:20)
[2022-11-15] MEDS ORDERED: MORPHINE 4 MG/ML SYR ONE (13:30)
--- NOTE | 2022-11-15 13:59 | ER ---
Nurse's Notes [facility] Name: Bronson Mirza Age: 57 yrs Sex: Male : 1965 Arrival Date: 11/15/2022 Time: 09:24 Bed 10 Private MD: Maco Garcia T Diagnosis: Acute pancreatitis Presentation: 11/15 09:51 Chief complaint: Patient states: abd pain that began Dale evening. Coronavirus ss screen: Client denies travel out of the [place] in the last 14 days. Ebola Screen: Patient denies exposure to infectious person. Patient denies travel to an Ebola-affected area in the 21 days before illness onset. Initial Sepsis Screen: Does the patient meet any 2 criteria? No. Patient's initial sepsis screen is negative. Does the patient have a suspected source of infection? No. Patient's initial sepsis screen is negative. Risk Assessment: Do you want to hurt yourself or someone else? Patient reports no desire to harm self or others. Onset of symptoms was November 12, 2022. 09:51 Method Of Arrival: Ambulatory ss 09:51 Acuity: ADRIENNE 3 ss Triage Assessment: 13:38 General: Appears in no apparent distress. Behavior is calm, cooperative, appropriate ap3 for age. Pain: Complains of pain in back and abdomen Pain does not radiate. Pain currently is 6 out of 10 on a pain scale. Pain began gradually, 2-3 days ago. Neuro: Level of Consciousness is awake, alert, obeys commands, Oriented to person, place, time, situation, Speech is normal. Cardiovascular: Patient's skin is warm and dry. Respiratory: Airway is patent Respiratory effort is even, unlabored, Respiratory pattern is regular, symmetrical. GI: Reports lower abdominal pain, upper abdominal pain. 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 - Social history:: Smoking status: Patient denies any tobacco usage or history of. Screenin:38 [facility] ED Fall Risk Assessment (Adult) History of falling in the last 3 months, ap3 including since admission. Abuse screen: Denies threats or abuse. Nutritional screening: No deficits noted. Tuberculosis screening: No symptoms or risk factors identified. Assessment: 18:10 GI: Bowel sounds present X 4 quads. Abd is soft X 4 quads. ap3 20:34 Reassessment: report called to Briseida MELENDEZ for room 410. bb Vital Signs: 09:51 BP 147 / 88; Pulse 57; Resp 16; Temp 98.6(O); Pulse Ox 100% on R/A; Weight 102.06 kg; ss Height 6 ft. 2 in. (187.96 cm); Pain 6/10; 13:38 BP 146 / 104; Pulse 64; ap3 20:32 BP 141 / 83; Pulse 58; Resp 16 S; Temp 98.4(O); Pulse Ox 96% on R/A; bb 09:51 Body Mass Index 28.89 (102.06 kg, 187.96 cm) ED Course: 09:24 Patient arrived in ED. mr 09:24 Maco aGrcia MD is Private Physician. mr 09:29 [facility] 09:29 Arianna Monroe MD is Attending Physician. [facility] 09:52 Triage completed. ss 09:52 Arm band placed on right wrist. ss 10:52 CMP Sent. rs5 10:52 Lipase Sent. rs5 10:52 Troponin High Sensitivity Sent. rs5 10:52 COVID-19/FLU A+B Sent. rs5 10:52 Blood Culture Adult (2) Sent. rs5 10:52 Inserted saline lock: 22 gauge in right antecubital area, using aseptic technique. rs5 Blood collected. 10:52 Inserted saline lock: 22 gauge in left antecubital area, using aseptic technique. Blood rs5 collected. 10:52 EKG done, by ED staff. rs5 10:53 COVID swab sent to lab. Flu and/or RSV swab sent to lab. rs5 11:07 CT Chest For PE Angio In Process Unspecified. EDMS 11:07 CT Abd/Pelvis - IV Contrast Only In Process Unspecified. EDMS 12:25 Kim Santana, NORA is Primary Nurse. ap3 13:39 Patient has correct armband on for positive identification. Bed in low position. Call ap3 light in reach. Side rails up X 1. Pulse ox on. NIBP on. Door closed. Noise minimized. Warm blanket given. 13:57 Guanaco Reyes MD is Hospitalizing Provider. [facility] 18:10 No provider procedures requiring assistance completed. Patient admitted, IV remains in ap3 place. 19:20 Primary Nurse role handed off by Kim Santana, RN mw2 Administered Medications: 12:25 Drug: Lactated Ringers Solution 1000 ml Route: IV; Rate: 1000 bolus; Site: left ap3 antecubital; 12:26 Drug: Zofran (Ondansetron) 4 mg Route: IVP; Site: left antecubital; ap3 13:22 Follow up: Response: No adverse reaction ap3 13:37 Drug: morphine 4 mg Route: IVP; Infused Over: 4 mins; Site: right antecubital; ap3 14:35 Follow up: Response: No adverse reaction; Pain is unchanged, physician notified ap3 14:35 Drug: Dilaudid (HYDROmorphone) 0.5 mg Route: IVP; Site: right antecubital; ap3 18:10 Follow up: Response: No adverse reaction; Pain is decreased ap3 Medication: 18:10 VIS not applicable for this client. ap3 Outcome: 13:58 Decision to Hospitalize by Provider. [facility] 20:35 Admitted to Tele accompanied by tech, via wheelchair, room 410, with chart, Report bb called to Briseida MELENDEZ 20:35 Condition: stable 20:35 Patient left the ED. antonio Signatures: Dispatcher [employer] EDMS Kurt Moore PA PA jmm Rivera, Mary mr BallardPayton RN RN Nikki Cazares RN RN Kim Santana RN RN ap3 Sam Schulte mw2 Tra Lino rs5 Corrections: (The following items were deleted from the chart) 09:54 09:52 Allergies: No Known Allergies; ss ss
--- NOTE | 2022-11-15 13:59 | EDPHYS ---
Physician Documentation [facility] Name: Bronson Mirza Age: 57 yrs Sex: Male : 1965 Arrival Date: 11/15/2022 Time: 09:24 Bed 10 Private MD: Maco Garcia T ED Physician Arianna Monroe HPI: 11/15 09:43 This 57 yrs old Male presents to ER via Ambulatory with complaints of Abdominal Pain. jmm 09:43 The patient presents with abdominal pain in the epigastric area. Onset: The jmm symptoms/episode began/occurred gradually, 1 day(s) ago. The symptoms radiate to Associated signs and symptoms: Pertinent positives: Pertinent negatives: fever. This is a 57-year-old male with a history of prostate cancer the presents emerged part with complaints of epigastric abdominal pain which radiates to his back. Symptoms began last night. Denies vomiting or diarrhea. Patient states he did have fever and chills 2 to 3 days ago that had resolved.. 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 - Social history:: Smoking status: Patient denies any tobacco usage or history of. ROS: 09:43 Constitutional: Negative for fever, chills, and weight loss, Cardiovascular: Negative jmm for chest pain, palpitations, and edema, Respiratory: Negative for shortness of breath, cough, wheezing, and pleuritic chest pain. 09:43 Abdomen/GI: Positive for abdominal pain. 09:43 All other systems are negative. Exam: 09:43 Constitutional: This is a well developed, well nourished patient who is awake, alert, jmm and in no acute distress. Head/Face: atraumatic. Eyes: EOMI, no conjunctival erythema appreciated ENT: Moist Mucus Membranes Neck: Trachea midline, Supple Chest/axilla: Normal chest wall appearance and motion. Cardiovascular: Regular rate and rhythm. No edema appreciated Respiratory: Normal respirations, no respiratory distress appreciated 09:43 Back: Normal ROM Skin: General appearance color normal MS/ Extremity: Moves all extremities, no obvious deformities appreciated, no edema noted to the lower extremities Neuro: Awake and alert Psych: Behavior is normal, Mood is normal, Patient is cooperative and pleasant 09:43 Abdomen/GI: Inspection: abdomen appears normal, Bowel sounds: normal, Palpation: soft, mild abdominal tenderness, in the epigastric area, right upper quadrant and left upper quadrant. Vital Signs: 09:51 BP 147 / 88; Pulse 57; Resp 16; Temp 98.6(O); Pulse Ox 100% on R/A; Weight 102.06 kg; ss Height 6 ft. 2 in. (187.96 cm); Pain 6/10; 13:38 BP 146 / 104; Pulse 64; ap3 20:32 BP 141 / 83; Pulse 58; Resp 16 S; Temp 98.4(O); Pulse Ox 96% on R/A; bb 09:51 Body Mass Index 28.89 (102.06 kg, 187.96 cm) ss MDM: 09:43 Patient medically screened. [facility] 13:56 Data reviewed: vital signs, nurses notes. Counseling: I had a detailed discussion with juan the patient and/or guardian regarding: the historical points, exam findings, and any diagnostic results supporting the discharge/admit diagnosis, lab results, radiology results, the need for further work-up and treatment in the hospital. ED course: I discussed the patient with RIVER Minaya NP whom accepted the patient to Dr. Joya's service. 11/15 09:44 Order name: CBC with Diff; Complete Time: 10:34 [facility] 11/15 09:44 Order name: CMP; Complete Time: 10:55 [facility] 11/15 09:44 Order name: Lipase; Complete Time: 10:55 [facility] 11/15 09:44 Order name: Troponin High Sensitivity; Complete Time: 10:55 [facility] 11/15 09:44 Order name: Lactate w/ 2H reflex if indic.; Complete Time: 10:55 [facility] 11/15 09:44 Order name: Blood Culture Adult (2) [facility] 11/15 09:53 Order name: COVID-19/FLU A+B; Complete Time: 11:13 [facility] 11/15 15:07 Order name: Hemoglobin A1c [facility] 11/15 15:07 Order name: Lipid Profile; Complete Time: 16:25 [facility] 11/15 15:07 Order name: Lipase [facility] 11/15 15:07 Order name: Lipase [facility] 11/15 15:11 Order name: NT PRO-BNP; Complete Time: 17:15 [facility] 11/15 15:11 Order name: T4 Free; Complete Time: 17:15 [facility] 11/15 15:11 Order name: Thyroid Stimulating Hormone; Complete Time: 17:15 [facility] 11/15 09:44 Order name: IV Saline Lock; Complete Time: 10:52 [facility] 11/15 09:44 Order name: Labs collected and sent; Complete Time: 10:52 [facility] 11/15 09:44 Order name: EKG - Nurse/Tech; Complete Time: 10:52 [facility] 11/15 09:44 Order name: CT Chest For PE Angio; Complete Time: 11:23 [facility] 11/15 09:44 Order name: CT Abd/Pelvis - IV Contrast Only; Complete Time: 11:35 [facility] 11/15 15:07 Order name: NPO [facility] 11/15 15:11 Order name: Urinalysis [facility] 11/15 15:11 Order name: Basic Metabolic Panel [facility] 11/15 15:11 Order name: Basic Metabolic Panel [facility] 11/15 15:11 Order name: CBC with Automated Diff [facility] 11/15 15:11 Order name: CBC with Automated Diff [facility] Administered Medications: 12:25 Drug: Lactated Ringers Solution 1000 ml Route: IV; Rate: 1000 bolus; Site: left ap3 antecubital; 12:26 Drug: Zofran (Ondansetron) 4 mg Route: IVP; Site: left antecubital; ap3 13:22 Follow up: Response: No adverse reaction ap3 13:37 Drug: morphine 4 mg Route: IVP; Infused Over: 4 mins; Site: right antecubital; ap3 14:35 Follow up: Response: No adverse reaction; Pain is unchanged, physician notified ap3 14:35 Drug: Dilaudid (HYDROmorphone) 0.5 mg Route: IVP; Site: right antecubital; ap3 18:10 Follow up: Response: No adverse reaction; Pain is decreased ap3 Disposition Summary: 11/15/22 13:58 Hospitalization Ordered Hospitalization Status: Observation mary Provider: Guanaco Reyes Location: Telemetry/MedSurg (observation) [facility] Condition: Stable jm Problem: new jmm Symptoms: are unchanged jmm Bed/Room Type: Standard [facility] Room Assignment: 410(11/15/22 18:32) dw Diagnosis - Acute pancreatitis [facility] Forms: - Medication Reconciliation Form [facility] - SBAR form [facility] Addendum: 11/19/2022 02:12 STAFF ATTESTATION STATEMENT: I was immediately available onsite in the emergency s d2 department for consultation in the care of this patient. I did not see or examine this patient. Arianna Monroe MD. Signatures: Dispatcher [employer] [facility] Margo Christian, RN RN dw Kurt Moore PA PA [facility] Nikki Cook RN RN Kim Santana RN RN ap3 Arianna Monroe MD MD sd2 Corrections: (The following items were deleted from the chart) 11/15 09:54 09:52 Allergies: No Known Allergies; [facility] 15:02 10:56 Abdomen Limited+US.RAD.BRZ ordered. [facility] 18:32 13:58 [facility] 18:32 18:32 [facility]
[2022-11-15] MEDS ORDERED: HYDROMORPHONE HCL 0.5 MG/0.5 ML INJ ONE (14:31)
[2022-11-15] MEDS ORDERED: MORPHINE 4 MG/ML SYR IV PRN (15:05)
[2022-11-15] MEDS ORDERED: ONDANSETRON 4 MG/2 ML VIAL IV PRN (15:09)
--- NOTE | 2022-11-15 15:12 | P.HP ---
Certification for Inpatient Patient admitted to: Observation With expected LOS: <2 Midnights Patient will require the following post-hospital care: None Practitioner: I am a practitioner with admitting privileges, knowledge of patient current condition, hospital course, and medical plan of care. Services: Services provided to patient in accordance with Admission requirements found in Title 42 Section 412.3 of the Code of Federal Regulations <Cj Kaiser - Last Filed: 11/16/22 04:58> Patient History Date of Service: 11/15/22 Reason for admission: Abdominal pain History of Present Illness: Patient is a 57-year-old male with a past medical history significant for prostate cancer, PE\DVT who presents with complaint of generalized abdominal pain onset yesterday. Patient reported that pain radiates to his back. Patient rated pain as 7/10 in severity and described pain as dull constant in quality. Patient reported Associated signs and symptoms of abdominal bloating\distention, poor appetite and mild shortness of breath. Patient denies any other signs or symptoms. Symptoms are aggravated or relieved by nothing. Patient decided to present to the hospital due to worsening symptoms. Of note, patient reported flulike symptoms--fever, rhinorrhea, chills 3 days ago but indicated that symptoms have all resolved. - Past Medical/Surgical History -: Prostrate CA -: DVT\PE -: Prostatectomy - Family History Family History: Reviewed- Non-Contributory - Social History Smoking Status: Never smoker Alcohol use: No CD- Drugs: No Caffeine use: No Place of Residence: Home <Cj Kaiser - Last Filed: 11/16/22 04:58> Date of Service: 11/16/22 <Guanaco Reyes - Last Filed: 11/16/22 19:06> Allergies ketorolac [From Toradol] Adverse Reaction (Severe, Verified 11/15/22 20:58) Anaphylaxis Home Medications: Apixaban [Eliquis] 1 tab PO BID 11/15/22 Review of Systems General: Other (Poor Appetite ), Unremarkable Eyes: Unremarkable ENT: Unremarkable Respiratory: Shortness of Breath Cardiovascular: Unremarkable Gastrointestinal: Abdominal Pain, Distention, Other (Abdominal bloating ) Genitourinary: Unremarkable Musculoskeletal: Unremarkable Integumentary: Unremarkable Neurological: Unremarkable Lymphatics: Unremarkable <Cj Kaiser - Last Filed: 11/16/22 04:58> Physical Examination - Physical Exam General: Alert, In no apparent distress, Oriented x3, Cooperative HEENT: Atraumatic, PERRLA, Mucous membr. moist/pink, EOMI, Sclerae nonicteric Neck: Supple, 2+ carotid pulse no bruit, No LAD, Without JVD or thyroid abnormality Respiratory: Clear to auscultation bilaterally, Normal air movement Cardiovascular: No edema, Regular rate/rhythm, Normal S1 S2 Capillary refill: <2 Seconds Gastrointestinal: Soft and benign, Distended, Tenderness Musculoskeletal: No clubbing, No swelling, No contractures, No erythema, No tenderness Integumentary: No rashes, No breakdown, No significant lesion Neurological: Normal speech, Normal tone, Normal affect Lymphatics: No axilla or inguinal lymphadenopathy - Studies Laboratory Data (last 24 hrs) 11/15/22 10:18: Sodium 136, Potassium 3.7, BUN 12, Creatinine 0.80, Glucose 110 H, Total Bilirubin 0.6, AST 28, ALT 72 H, Alkaline Phosphatase 107, Lipase 3381 H 11/15/22 10:18: WBC 9.00, Hgb 15.1, Hct 43.8, Plt Count 208 <Cj Kaiser - Last Filed: 11/16/22 04:58> - Studies Laboratory Data (last 24 hrs) 11/16/22 03:54: WBC 10.40, Hgb 13.8 D, Hct 39.7, Plt Count 196 11/16/22 03:54: Sodium 137, Potassium 3.8, BUN 11, Creatinine 0.74, Glucose 125 H, Lipase 680 H <Guanaco Reyes - Last Filed: 11/16/22 19:06> Assessment and Plan - Plan --Acute pancreatitis. CT abdomen does not indicate any acute intra-abdominal abnormality. Lipase elevated--3381. We will keep patient NPO. Patient denies any history of alcohol use but indicated a history of hypertriglyceridemia about 20 years ago which resolved after medication therapy. Lipid panel pending. Will reassess lipase in a.m. Continue supportive care. --Acute pain. We will manage pain with current pain medication regimen. --History of prostate cancer. Status post prostatectomy. Patient follow-up with an outpatient urologist. Continue supportive care. --History of PE\DVT. Continue Eliquis when appropriate. --Elevated blood pressure without diagnosis of hypertension. Will manage BP with hydrazine prn --DVT prophylaxis with SCDs. Continue chemical prophylaxis with Eliquis when appropriate. Discharge Plan: Home Plan to discharge in: 48 Hours - Advance Directives Does patient have a Living Will: No Does patient have a Durable POA for Healthcare: No - Code Status/Comfort Care Code Status Assessed: Yes Physician Review: Patient Assessed, Agree with Above Assessment and Plan Critical Care: No <Cj Kaiser - Last Filed: 11/16/22 04:58> Physician Review: Patient Assessed, Agree with Above Assessment and Plan <Guanaco Reyes - Last Filed: 11/16/22 19:06>
[2022-11-15 16:43] LABS: Thyroid Stimulating Hormone 2.14 uIU/mL (0.358-3.740)
[2022-11-15 21:00] VITALS: BMI 28.8
[2022-11-15] MEDS: D5 0.9 NS 1,000 ML IV SCH (21:04)
[2022-11-15] MEDS: HYDROMORPHONE HCL 1 MG/ML INJ IV PRN (21:04)
[2022-11-15] MEDS: APIXABAN 5 MG TABLET PO SCH (22:27)
[2022-11-16] MEDS: D5 0.9 NS 1,000 ML IV SCH ×3 (02:00→18:17)
[2022-11-16] MEDS: HYDROMORPHONE HCL 1 MG/ML INJ IV PRN ×4 (02:41→22:13)
[2022-11-16 04:50] LABS: Absolute Lymphocytes (CBC) 0.9 K/uL (0.7-4.9); Hematocrit 39.7 % (39.6-49.0); Lymphocytes % 8.8 % (15.3-44.8); MCV 85.2 fL (80-100); RBC Red Blood Cell Count 4.66 M/uL (4.33-5.43)
[2022-11-16] MEDS ORDERED: HYDRALAZINE HCL 20 MG/ML VIAL IV PRN (05:07)
[2022-11-16 05:19] LABS: Potassium 3.8 mmol/L (3.5-5.1)
[2022-11-16 07:48] LABS: Specific Gravity 1.028 (1.005-1.030); Urine Bacteria None Seen /HPF (<20); Urine Bilirubin NEGATIVE (Negative); Urine Blood 1+ (Negative); Urine Clarity Clear (Clear); Urine Color Yellow (Yellow); Urine Glucose NEGATIVE (Negative); Urine Mucus 2+ /HPF (None Seen); Urine Protein TRACE (Negative); Urine RBC <5 /HPF (None Seen); Urine Urobilinogen Normal (Normal)
[2022-11-16] MEDS ORDERED: APIXABAN 5 MG TABLET PO SCH (09:00)
[2022-11-16] MEDS ORDERED: ENOXAPARIN 40 MG/0.4 ML SQ SCH (09:00)
[2022-11-16] MEDS ORDERED: POTASSIUM CL SA 10 MEQ TAB PO ONE (09:00)
[2022-11-16] MEDS: APIXABAN 5 MG TABLET PO SCH ×2 (09:11→21:08)
[2022-11-16] MEDS: DICYCLOMINE HCL 10 MG CAP PO PRN (18:17)
--- NOTE | 2022-11-16 19:11 | P.PN ---
Subjective Date of Service: 11/16/22 Chief Complaint: Abdominal pain No acute events overnight. He reports that his abdominal pain is gradually improving. This morning, he graded it a 5-6/10 in severity. He denies any nausea/vomiting or diarrhea. Review of Systems 10-point ROS is otherwise unremarkable Gastrointestinal: Abdominal Pain (mid-epigastric) Physical Examination - Vital Signs Temperature: 97.9 F Blood Pressure: 159/86 Pulse: 72 Respirations: 16 Pulse Ox (%): 96 - Physical Exam General: Alert, In no apparent distress, Oriented x3 HEENT: Atraumatic, Mucous membr. moist/pink, EOMI, Sclerae nonicteric Neck: JVD not distended Respiratory: Clear to auscultation bilaterally, Normal air movement Cardiovascular: No edema, Regular rate/rhythm, Normal S1 S2, No gallops, No rubs, No murmurs Gastrointestinal: Normal bowel sounds, Soft and benign, Non-distended, No rebound, No guarding, Tenderness (mid-epigastric) Musculoskeletal: No clubbing Integumentary: No rashes Neurological: Normal speech, Cranial nerves 3-12 intact, Normal affect - Studies Laboratory Data (last 24 hrs) 11/16/22 03:54: WBC 10.40, Hgb 13.8 D, Hct 39.7, Plt Count 196 11/16/22 03:54: Sodium 137, Potassium 3.8, BUN 11, Creatinine 0.74, Glucose 125 H, Lipase 680 H Assessment And Plan - Plan # Acute Pancreatitis - BISAP score = 0 - Reports prior cholecystectomy, Denies alcohol use - Lipid panel = TC 179, HDL 49, LDL 113, TG 83 - NPO - advance diet as tolerated - Lactated Ringers @ 100 mL/hour - Pain control # History of Deep Venous Thrombosis/Pulmonary Embolism - Continue home apixaban # History of Prostate Cancer s/p Prostatectomy - Follow-up with Urologist as previously scheduled Guanaco Reyes M.D.
[2022-11-16] MEDS: Ringers Lactate 1,000 ML IV SCH (21:07)
[2022-11-17 04:33] LABS: Magnesium 1.9 mg/dL (1.6-2.4); Phosphorus 2.3 mg/dL (2.5-4.9); Potassium 3.8 mmol/L (3.5-5.1)
[2022-11-17] MEDS: Ringers Lactate 1,000 ML IV SCH ×3 (06:00→16:00)
[2022-11-17] MEDS: APIXABAN 5 MG TABLET PO SCH ×2 (08:34→20:51)
[2022-11-17] MEDS: DICYCLOMINE HCL 10 MG CAP PO PRN ×2 (08:34→20:51)
[2022-11-17] MEDS: POTASS/SODIUM PHOSPHATE 1 PKT POWD.PACK PO SCH (08:35)
[2022-11-17] MEDS ORDERED: POTASSIUM CL SA 10 MEQ TAB PO ONE (09:00)
[2022-11-17] MEDS ORDERED: POTASSIUM 25 MEQ EFFERV TAB PO ONE (09:00)
--- NOTE | 2022-11-17 15:44 | P.PN ---
Subjective Date of Service: 11/17/22 Chief Complaint: Abdominal pain No acute events overnight. He reports that his abdominal pain is gradually improving. This morning, he graded it a 3-4/10 in severity. He was able to tolerate the clear liquid diet, without any issues. He denies any nausea/vomiting or diarrhea. Review of Systems 10-point ROS is otherwise unremarkable Gastrointestinal: Abdominal Pain Physical Examination - Vital Signs Temperature: 98.2 F Blood Pressure: 137/80 Pulse: 75 Respirations: 16 Pulse Ox (%): 94 Assessment And Plan - Plan - Physical Exam General: Alert, In no apparent distress, Oriented x3 HEENT: Atraumatic, Mucous membr. moist/pink, Sclerae nonicteric Neck: JVD not distended Respiratory: Clear to auscultation bilaterally, Normal air movement Cardiovascular: No edema, Regular rate/rhythm, Normal S1 S2, No gallops, No rubs, No murmurs Gastrointestinal: Normal bowel sounds, Soft and benign, Non-distended, No rebound, No guarding, Tenderness (mid-epigastric) Musculoskeletal: No clubbing Integumentary: No rashes Neurological: Normal speech, Normal affect # Acute Pancreatitis - BISAP score = 0 - Reports prior cholecystectomy, Denies alcohol use - Lipid panel = TC 179, HDL 49, LDL 113, TG 83 - Started clear liquid diet - advance diet as tolerated - Lactated Ringers @ 100 mL/hour - Pain control # History of Deep Venous Thrombosis/Pulmonary Embolism - Continue home apixaban # History of Prostate Cancer s/p Prostatectomy - Follow-up with Urologist as previously scheduled Guanaco Reyes M.D.
--- NOTE | 2022-11-17 16:07 | EKG ---
Test Date: 2022-11-15 Test Time: 10:37:26 Cloth Presser: AURELIO MEASUREMENT RESULTS: Intervals: Rate: 51 RI: 190 QRSD: 96 QT: 420 QTc: 387 [place]: P: 42 RI: 190 QRS: 32 T: 31 INTERPRETIVE STATEMENTS: Sinus bradycardia Otherwise normal ECG Compared to ECG 04/18/2014 16:40:14 Sinus rhythm no longer present Sinus arrhythmia no longer present Electronically Signed On 11-17-22 16:05:25 SQL REPORT ANALYST by Aleksey De Guzman
[2022-11-18] MEDS: Ringers Lactate 1,000 ML IV SCH (02:27)
[2022-11-18 04:29] LABS: Phosphorus 2.2 mg/dL (2.5-4.9); Potassium 3.6 mmol/L (3.5-5.1)
--- NOTE | 2022-11-18 07:21 | P.DS ---
Admission Date: 11/15/22 Discharge Date: 11/18/22 Disposition: ROUTINE DISCHARGE Discharge Condition: GOOD Reason for Admission: Abdominal pain Hospital Course: DIAGNOSES: # Acute Pancreatitis # History of Deep Venous Thrombosis/Pulmonary Embolism # History of Prostate Cancer s/p Prostatectomy HOSPITAL COURSE: Mr. Bronson Mirza is a pleasant 57 year old male with a past medical history significant for prostate cancer s/p prostatectomy and prior DVT/PE on apixaban who was admitted to the [facility] on 11/15/2022 for abdominal pain. He was admitted to the Medicine service. Upon further evaluation, he was found to have acute pancreatitis. He was treated with IV fluids and placed NPO. He was gradually started on a diet and it was advanced until he was able to tolerate a regular diet, without any issues. Today, he was able to eat breakfast without any residual abdominal pain. He stated that he felt well and would like to be discharged home. On 11/18/2022, he was seen on morning rounds and deemed medically stable for discharge. He was discharged with instructions to schedule follow-up appointments with his PCP (Dr. Garcia) and with Gastroenterology (Dr. Ford). He was given the opportunity to ask questions and reported no further questions. Furthermore, all questions were answered to the best of my ability. A copy of this discharge summary will be sent to the above providers to facilitate continuity of care. Today, I personally spent 25 minutes on his case, of which greater than 50% of the time was spent in patient education, counseling, and coordination of care as described above. General: Alert, In no apparent distress, Oriented x3 HEENT: Atraumatic, Mucous membr. moist/pink, Sclerae nonicteric Neck: JVD not distended Respiratory: Clear to auscultation bilaterally, Normal air movement Cardiovascular: No edema, Regular rate/rhythm, Normal S1 S2, No gallops, No rubs, No murmurs Gastrointestinal: Soft and benign, Non-distended, No rebound, No guarding, No tenderness Musculoskeletal: No clubbing Integumentary: No rashes Neurological: Normal speech, Normal affect Vital Signs/Physical Exam: Temp Pulse Resp BP Pulse Ox 97.1 F 60 18 130/66 95 11/18/22 04:00 11/18/22 04:00 11/18/22 04:00 11/18/22 04:00 11/18/22 04:00 Laboratory Data at Discharge: WBC 10.40 K/uL (4.3-10.9) 11/16/22 03:54 Hgb 13.8 g/dL (13.6-17.9) D 11/16/22 03:54 Hct 39.7 % (39.6-49.0) 11/16/22 03:54 Plt Count 196 K/uL (152-406) 11/16/22 03:54 Sodium 137 mmol/L (136-145) D 11/18/22 04:00 Potassium 3.6 mmol/L (3.5-5.1) 11/18/22 04:00 BUN 10 mg/dL (7-18) 11/18/22 04:00 Creatinine 0.77 mg/dL (0.70-1.30) 11/18/22 04:00 Glucose 109 mg/dL (74-106) H 11/18/22 04:00 Phosphorus 2.2 mg/dL (2.5-4.9) L 11/18/22 04:00 Magnesium 1.9 mg/dL (1.6-2.4) 11/17/22 03:48 Total Bilirubin 0.6 mg/dL (0.2-1.0) 11/15/22 10:18 AST 28 U/L (15-37) 11/15/22 10:18 ALT 72 U/L (16-61) H 11/15/22 10:18 Alkaline Phosphatase 107 U/L (45-117) 11/15/22 10:18 Triglycerides 83 mg/dL (<150) 11/15/22 10:18 Cholesterol 179 mg/dL (<200) 11/15/22 10:18 HDL Cholesterol 49 mg/dL (40-60) 11/15/22 10:18 Cholesterol/HDL Ratio 3.65 11/15/22 10:18 Lipase 680 U/L (73-393) H 11/16/22 03:54 Home Medications: RX: Apixaban [Eliquis] 1 tab PO BID 11/15/22 Physician Discharge Instructions: 1. Please call and schedule a follow-up appointment with your PCP (Dr. Garcia) in 3-5 days 2. Please call and schedule a follow-up appointment with Gastroenterology (Dr. Ford) in 5-7 days Diet: Regular Activity: Ad idalia Followup: Maco aGrcia MD [Primary Care Provider] - 1 Week (Call for appointment.) Farhan Ford MD [ASSOCIATE-ACTIVE - CAN ADMIT] - 1 Week (Call for appointment.) Time spent managing pt's care (in minutes): 25
[2022-11-18] MEDS ORDERED: POTASS/SODIUM PHOSPHATE 1 PKT POWD.PACK PO SCH (08:00)
[2022-11-18] MEDS: APIXABAN 5 MG TABLET PO SCH (08:00)
[2022-11-18] MEDS: DICYCLOMINE HCL 10 MG CAP PO PRN (08:03)
[2022-11-18 08:08] VITALS: O2SAT 94
[2022-11-18 08:25] VITALS: BP 112/67; TEMP 97.2
[2022-11-18] MEDS ORDERED: POTASSIUM CL SA 10 MEQ TAB PO ONE (09:00)
== END 2022-11-18 09:40 | disposition home or self-care (01) | DRG 440 ==
LOC: ER 09:22 → ERHOLD 15:01 → 4TH 20:39 → OBSVTOIN 11-16 12:08
PROVIDERS: ADMIT Internal Medicine; ATTEND Internal Medicine
DX: K85.90 Acute pancreatitis without necrosis or infection, unspecified (principal); R03.0 Elevated blood-pressure reading, without diagnosis of hypertension; Z88.8 Allergy status to other drugs, medicaments and biological substances; Z90.49 Acquired absence of other specified parts of digestive tract; Z90.79 Acquired absence of other genital organ(s); Z85.46 Personal history of malignant neoplasm of prostate; Z79.01 Long term (current) use of anticoagulants; Z86.718 Personal history of other venous thrombosis and embolism; Z86.711 Personal history of pulmonary embolism; Z20.822 Contact with and (suspected) exposure to COVID-19
CPT/HCPCS: 0240U; 36415; 71275; 74177; 80048; 80053; 80061; 81001; 83036; 83605; 83690; 83735; 83880; 84100; 84439; 84443; 84484; 85025; 87040; 93005; 99285; G0378; J1170; J2405; J7042; J7120; Q9967

== ENCOUNTER 2023-05-24 10:41 | Emergency (ER) | payer OTHER ==
[2023-05-24] MEDS ORDERED: TDAP (DIPHTH,PERTUSS(ACELL),TET VAC) 0.5 ML VIAL IMVAC ONE (10:57)
[2023-05-24] MEDS ORDERED: DERMABOND SKIN ADHESIVE TOP ONE (10:57)
[2023-05-24] MEDS ORDERED: LIDOCAINE 1% MPF 5 ML VIAL ONE (10:57)
[2023-05-24] MEDS ORDERED: SILVER NITRATE 1 APPL TOP ONE (10:59)
--- NOTE | 2023-05-24 11:37 | RAD REPORT ---
EXAM DESCRIPTION: RAD - Hand Left 3 View - 05/24/2023 11:01 am CLINICAL HISTORY: L index finger crushing injury COMPARISON: No comparisons FINDINGS: Soft tissue swelling is present affecting the second finger. No fracture, dislocation or r adiopaque foreign body.
--- NOTE | 2023-05-24 11:46 | ER ---
Nurse's Notes [facility] Name: Bronson Mirza Age: 57 yrs Sex: Male : 1965 Arrival Date: 05/24/2023 Time: 10:41 Bed 6 Private MD: Diagnosis: Left index laceration, tissue avulsion Presentation: 05/24 10:42 Chief complaint: EMS states: pt got his left hand caught in a machine at work and now kc6 has a laceration to the left index finger. Coronavirus screen: At this time, the client does not indicate any symptoms associated with coronavirus-19. Ebola Screen: No symptoms or risks identified at this time. Initial Sepsis Screen: Does the patient meet any 2 criteria? No. Patient's initial sepsis screen is negative. Does the patient have a suspected source of infection? No. Patient's initial sepsis screen is negative. Risk Assessment: Do you want to hurt yourself or someone else? Patient reports no desire to harm self or others. Onset of symptoms was May 24, 2023. 10:42 Method Of Arrival: EMS: MARCIA galloway 10:42 Acuity: ADRIENNE 4 kc6 Triage Assessment: 10:44 General: Appears in no apparent distress. comfortable, Behavior is calm, cooperative, kc6 appropriate for age. Pain: Complains of pain in left hand. EENT: No signs and/or symptoms were reported regarding the EENT system. Neuro: Level of Consciousness is awake, alert, obeys commands, Oriented to person, place, time, situation, Appropriate for age. Cardiovascular: Capillary refill < 3 seconds. Respiratory: Airway is patent Trachea midline Respiratory effort is even, unlabored, Respiratory pattern is regular, symmetrical. Derm: Skin is pink, warm \T\ dry. Wound noted left hand. Musculoskeletal: No signs and/or symptoms reported regarding the musculoskeletal system. Circulation, motion, and sensation intact. Capillary refill < 3 seconds, Range of motion: intact in all extremities. 10:45 Injury Description: Avulsion sustained to left hand, left index finger. 6 Historical: - Allergies: 10:44 Toradol; kc6 - PMHx: 10:44 PE/ DVT after prostatectomy; PROSTATE CA; kc6 - PSHx: 10:44 Appendectomy; Cholecystectomy; prostatectomy; kc6 - Immunization history:: Client reports receiving the 2nd dose of the Covid vaccine, Flu vaccine is up to date. - Social history:: Smoking status: Patient denies any tobacco usage or history of. Screenin:45 [facility] ED Fall Risk Assessment (Adult) History of falling in the last 3 months, kc6 including since admission No falls in past 3 months (0 pts) Confusion or Disorientation No (0 pts) Intoxicated or Sedated No (0 pts) Impaired Gait No (0 pts) Mobility Assist Device Used No (0 pt) Altered Elimination No (0 pt) Score/Fall Risk Level 0 - 2 = Low Risk Oriented to surroundings, Maintained a safe environment, Educated pt \T\ family on fall prevention, incl call for assistance when getting out of bed, Assessed \T\ reinforced patient's understanding of fall precautions, Hourly rounding (assess needs \T\ fall precautionary measures) done. Abuse screen: Denies threats or abuse. Denies injuries from another. Nutritional screening: No deficits noted. Tuberculosis screening: No symptoms or risk factors identified. Assessment: 10:45 Reassessment: please see triage assessment. kc6 11:41 Reassessment: Patient appears in no apparent distress at this time. No changes from 6 previously documented assessment. Patient and/or family updated on plan of care and expected duration. Pain level reassessed. Patient is alert, oriented x 3, equal unlabored respirations, skin warm/dry/pink. 12:25 Reassessment: Patient appears in no apparent distress at this time. No changes from 6 previously documented assessment. Patient and/or family updated on plan of care and expected duration. Pain level reassessed. Patient is alert, oriented x 3, equal unlabored respirations, skin warm/dry/pink. Vital Signs: 10:42 BP 138 / 97; Pulse 62; Resp 16 S; Temp 98.7(O); Pulse Ox 98% on R/A; Weight 104.33 kg kc6 (R); Height 6 ft. 2 in. (R); 11:41 BP 146 / 92; Pulse 56; Resp 17 S; Pulse Ox 98% on R/A; kc6 10:42 Body Mass Index 29.53 (104.33 kg, 187.96 cm) kc6 ED Course: 10:42 Patient arrived in ED. kc6 10:43 Cristobal Andre MD is Attending Physician. jr11 10:44 Triage completed. kc6 10:44 Arm band placed on. kc6 10:45 Soha Ortega, RN is Primary Nurse. kc6 10:45 Patient has correct armband on for positive identification. Bed in low position. Call kc6 light in reach. Side rails up X2. 11:03 Hand Left 3 View XRAY In Process Unspecified. EDMS 12:25 No provider procedures requiring assistance completed. Patient did not have IV access kc6 during this emergency room visit. Administered Medications: 10:54 Drug: Tetanus-Diphtheria Toxoid IM Adult 0.5 ml {[employer] Pump Operator: [employer] kc6 Exp: 10/22/2023. Lot #: [id number]. } Route: IM; Site: right deltoid; 12:24 Follow up: Response: No adverse reaction kc6 10:54 Drug: Lidocaine Infiltration (1 %) 5 ml Volume: 5 ml; Route: Infiltration; kc6 12:24 Follow up: Response: No adverse reaction; Pain is decreased kc6 Medication: 12:25 VIS not applicable for this client. kc6 Outcome: 11:46 Discharge ordered by . seamus 12:25 Discharged to home ambulatory. kc6 12:25 Condition: improved 12:25 Discharge instructions given to patient, Instructed on discharge instructions, follow up and referral plans. medication usage, wound care, Demonstrated understanding of instructions, follow-up care, medications, wound care, Prescriptions given X 1. 12:32 Patient left the ED. kc6 Signatures: Dispatcher [employer] EDMS Cristobal Andre MD MD jr11 Soha Ortega, RN RN kc6
--- NOTE | 2023-05-24 11:47 | EDPHYS ---
Physician Documentation [facility] Name: Bronson Mirza Age: 57 yrs Sex: Male : 1965 Arrival Date: 05/24/2023 Time: 10:41 Bed 6 Private MD: ED Physician Cristobal Andre HPI: 05/24 10:52 Patient is a 57-year-old gentleman [facility] who got his left index finger tip crushed jr11 by a gear on a saw. Patient denies any other injuries. Pain is moderate, denies any other complaints. Tetanus is not up-to-date.. Historical: - Allergies: 10:44 Toradol; kc6 - PMHx: 10:44 PE/ DVT after prostatectomy; PROSTATE CA; kc6 - PSHx: 10:44 Appendectomy; Cholecystectomy; prostatectomy; kc6 - Immunization history:: Client reports receiving the 2nd dose of the Covid vaccine, Flu vaccine is up to date. - Social history:: Smoking status: Patient denies any tobacco usage or history of. ROS: 10:52 All other systems are negative. jr11 Exam: 10:52 Constitutional: This is a well developed, well nourished patient who is awake, alert, jr11 and in no acute distress. Head/Face: Normocephalic, atraumatic. Eyes: Extra-ocular motions intact. Lids and lashes normal. Conjunctiva and sclera are non-icteric and not injected. Cornea within normal limits. Periorbital areas with no swelling, redness, or edema. ENT: Nares patent. No nasal discharge, no septal abnormalities noted. Oropharynx with no redness, swelling, or masses, exudates, or evidence of obstruction, uvula midline. Mucous membranes moist. Neck: Trachea midline, no thyromegaly or masses palpated, and no cervical lymphadenopathy. Supple, full range of motion without nuchal rigidity, or vertebral point tenderness. No Meningismus. Chest/axilla: Normal chest wall appearance and motion. Nontender with no deformity. No lesions are appreciated. Abdomen/GI: Soft, non-tender, with normal bowel sounds. No distension or tympany. No guarding or rebound. No evidence of tenderness throughout. Skin: Warm, dry with normal turgor. Normal color with no rashes, no lesions, and no evidence of cellulitis. Patient left index finger with pulp missing approximately 1 x 2 cm skin, minimal lateral nail involvement, no matrix involvement. Vital Signs: 10:42 BP 138 / 97; Pulse 62; Resp 16 S; Temp 98.7(O); Pulse Ox 98% on R/A; Weight 104.33 kg kc6 (R); Height 6 ft. 2 in. (R); 11:41 BP 146 / 92; Pulse 56; Resp 17 S; Pulse Ox 98% on R/A; kc6 10:42 Body Mass Index 29.53 (104.33 kg, 187.96 cm) kc6 Laceration: 10:52 Wound Repair of 2cm ( 0.8in ) subcutaneous laceration to palmar aspect of distal jr11 phalanx of left index finger. Irregularly shaped.. Minimal bleeding noted.. Distal neuro/vascular/tendon intact. Anesthesia: Local anesthetic administered with 5 mls of 1% lidocaine. Wound prep: Moderate cleansing. Skin closed with 1-0 Adhesive skin closure using Dermabond. Dressed with non-adherent dressing. Patient tolerated well. MDM: 10:43 Patient medically screened. rust 10:52 Differential diagnosis: Patient with a finger laceration, will x-ray, make sure there rust is no bony element to this. Data reviewed: vital signs, nurses notes. 11:45 ED course: XR viewed by me, no bony involvement . 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 kc6 Exp: 10/22/2023. Lot #: [id number]. } Route: IM; Site: right deltoid; 12:24 Follow up: Response: No adverse reaction 6 10:54 Drug: Lidocaine Infiltration (1 %) 5 ml Volume: 5 ml; Route: Infiltration; kc6 12:24 Follow up: Response: No adverse reaction; Pain is decreased kc6 Disposition Summary: 05/24/23 11:46 Discharge Ordered Location: Home rust Condition: Stable rust Diagnosis - Left index laceration, tissue avulsion jr11 Discharge Instructions: - Discharge Summary Sheet jr11 - Laceration Care, Adult, [id number] jr11 Forms: - Medication Reconciliation Form jr11 - Thank You Letter jr11 - Antibiotic Education jr11 - Prescription Opioid Use jr11 - Patient Portal [email or web address] jr11 Prescriptions: - Cephalexin 500 mg Oral Capsule - take 1 capsule by ORAL route every 8 hours for 10 days; 30 capsule; Refills: 0, jr11 Product Selection Permitted Signatures: Dispatcher [employer] Cristobal Zapata MD MD jr11 Soha Ortega RN RN kc6
[2023-05-24 12:53] VITALS: TEMP 98.7; O2SAT 98
[2023-05-24 12:54] VITALS: BP 146/92
== END 2023-05-24 12:32 | disposition home or self-care (01) ==
LOC: ER 10:41
PROC: 0HQGXZZ Repair Left Hand Skin, External Approach (ICD-10-PCS; principal; 2023-05-24)
DX: S61.211A Laceration without foreign body of left index finger without damage to nail, initial encounter (principal); Z23 Encounter for immunization; Z88.5 Allergy status to narcotic agent
CPT/HCPCS: 73130; 90471; 99284; 12001; J2001

== ENCOUNTER 2023-05-25 09:02 | Emergency (ER) | payer OTHER ==
--- NOTE | 2023-05-25 09:50 | EDPHYS ---
Physician Documentation [facility] Name: Bronson Mirza Age: 57 yrs Sex: Male : 1965 Arrival Date: 05/25/2023 Time: 09:02 Bed 17 Private MD: ED Physician Crissy Solis HPI: 05/25 10:11 This 57 yrs old Male presents to ER via Ambulatory with complaints of finger pain, snw Wound Check. 10:11 Patient presents to ED for recheck of: laceration, skin avulsion on Eliquis. The snw affected area is on the palmar aspect of distal phalanx of left index finger. Progress: The patient reports bandaid partially adhered to avulsion wound that was cauterized and dermabonded yesterday. 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 - Social history:: Smoking status: Patient denies any tobacco usage or history of. ROS: 10:05 Constitutional: Negative for fever, chills, and weight loss, Eyes: Negative for injury, snw pain, redness, and discharge, ENT: Negative for injury, pain, and discharge, Neck: Negative for injury, pain, and swelling, Cardiovascular: Negative for chest pain, palpitations, and edema, Respiratory: Negative for shortness of breath, cough, wheezing, and pleuritic chest pain, Abdomen/GI: Negative for abdominal pain, nausea, vomiting, diarrhea, and constipation, Back: Negative for injury and pain, : Negative for injury, bleeding, discharge, and swelling, MS/Extremity: Negative for injury and deformity, Neuro: Negative for headache, weakness, numbness, tingling, and seizure, Psych: Negative for depression, anxiety, suicide ideation, homicidal ideation, and hallucinations. 10:05 Skin: Positive for bandaged wound to left index fingertip. Exam: 09:50 Constitutional: This is a well developed, well nourished patient who is awake, alert, snw and in no acute distress. Head/Face: Normocephalic, atraumatic. Chest/axilla: Normal chest wall appearance and motion. Nontender with no deformity. No lesions are appreciated. Cardiovascular: Regular rate and rhythm with a normal S1 and S2. No gallops, murmurs, or rubs. Normal PMI, no JVD. No pulse deficits. Respiratory: Lungs have equal breath sounds bilaterally, clear to auscultation and percussion. No rales, rhonchi or wheezes noted. No increased work of breathing, no retractions or nasal flaring. Abdomen/GI: Soft, non-tender, with normal bowel sounds. No distension or tympany. No guarding or rebound. No evidence of tenderness throughout. Back: No spinal tenderness. No costovertebral tenderness. Full range of motion. MS/ Extremity: Pulses equal, no cyanosis. Neurovascular intact. Full, normal range of motion. Neuro: Awake and alert, GCS 15, oriented to person, place, time, and situation. Cranial nerves II-XII grossly intact. Motor strength 5/5 in all extremities. Sensory grossly intact. Cerebellar exam normal. Normal gait. Psych: Awake, alert, with orientation to person, place and time. Behavior, mood, and affect are within normal limits. 09:50 Skin: Appearance: normal except for affected area, injury, previous avulsion with adhered bandaid, area cleansed with hibiclens and then bandage trimmed of excess and then bandage reinforced, no active bleeding. Vital Signs: 09:21 BP 133 / 93; Pulse 63; Resp 17; Temp 98.1; Pulse Ox 98% ; Weight 104.33 kg; Height 6 ll1 ft. 2 in. ; Pain 2/10; 09:21 Body Mass Index 29.53 (104.33 kg, 187.96 cm) ll1 09:21 Pain Scale: Adult ll1 MDM: 09:07 Patient medically screened. snw 09:52 Differential diagnosis: wound eval. Data reviewed: vital signs, nurses notes. snw Counseling: I had a detailed discussion with the patient and/or guardian regarding: the historical points, exam findings, and any diagnostic results supporting the discharge/admit diagnosis, the presence of at least one elevated blood pressure reading (>120/80) during this emergency department visit, the need for outpatient follow up, for definitive care, to return to the emergency department if symptoms worsen or persist or if there are any questions or concerns that arise at home. 05/25 09:48 Order name: Wound Care; Complete Time: 09:48 snw 05/25 09:48 Order name: Wound dressing; Complete Time: :48 snw Administered Medications: No medications were administered Disposition Summary: 05/25/23 09:49 Discharge Ordered Location: Home snw Condition: Stable snw Diagnosis - Encounter for change or removal of nonsurgical wound dressing snw Followup: snw - With: Emergency Department - When: As needed - Reason: Worsening of condition Followup: snw - With: Private Physician - When: 5 - 6 days - Reason: Recheck today's complaints, Continuance of care, Re-evaluation by your physician Discharge Instructions: - Discharge Summary Sheet snw - Nonsutured Laceration Care snw - Wound Closure Removal, Care After snw Forms: - Medication Reconciliation Form snw - Thank You Letter snw - Antibiotic Education snw - Prescription Opioid Use snw - Patient Portal [email or web address].htm snw Signatures: Estelita Washington FNP-C [employer] Beti Morgan, RN RN ll1
--- NOTE | 2023-05-25 09:50 | ER ---
Nurse's Notes [facility] Name: Bronson Mirza Age: 57 yrs Sex: Male : 1965 Arrival Date: 05/25/2023 Time: 09:02 Bed 17 Private MD: Diagnosis: Encounter for change or removal of nonsurgical wound dressing Presentation: 05/25 09:21 Chief complaint: Patient states: Dressing got stuck to wound on his finger and it ll1 started bleeding again. Here yesterday for wound repair, on Eliquis. Coronavirus screen: Vaccine status: Patient reports receiving the 2nd dose of the covid vaccine. Client denies travel out of the [place] in the last 14 days. At this time, the client does not indicate any symptoms associated with coronavirus-19. Ebola Screen: Patient denies travel to an Ebola-affected area in the 21 days before illness onset. Initial Sepsis Screen: Does the patient meet any 2 criteria? No. Patient's initial sepsis screen is negative. Does the patient have a suspected source of infection? Yes: Skin breakdown/wound. Risk Assessment: Do you want to hurt yourself or someone else? Patient reports no desire to harm self or others. Onset of symptoms was May 25, 2023. 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 - Social history:: Smoking status: Patient denies any tobacco usage or history of. Screenin:34 [facility] ED Fall Risk Assessment (Adult) History of falling in the last 3 months, nj1 including since admission No falls in past 3 months (0 pts) Confusion or Disorientation No (0 pts) Intoxicated or Sedated No (0 pts) Impaired Gait No (0 pts) Mobility Assist Device Used Yes (1 pt) Altered Elimination No (0 pt) Score/Fall Risk Level 0 - 2 = Low Risk Oriented to surroundings, Maintained a safe environment, Hourly rounding (assess needs \T\ fall precautionary measures) done. Abuse screen: Denies threats or abuse. Denies injuries from another. Nutritional screening: On. Tuberculosis screening: No symptoms or risk factors identified. Assessment: 09:30 General: Appears in no apparent distress. comfortable. nj1 09:33 Pain: Denies pain. Neuro: Level of Consciousness is awake, alert, obeys commands, nj1 Oriented to person, place, time, situation. Cardiovascular: Patient's skin is warm and dry. Derm: Band-Aid noted to left index finger. Vital Signs: 09:21 BP 133 / 93; Pulse 63; Resp 17; Temp 98.1; Pulse Ox 98% ; Weight 104.33 kg; Height 6 ll1 ft. 2 in. ; Pain 2/10; 09:21 Body Mass Index 29.53 (104.33 kg, 187.96 cm) ll1 09:21 Pain Scale: Adult ll1 ED Course: 09:03 Patient arrived in ED. am2 09:05 Estelita Washington [facility]C [facility] snw 09:05 Crissy Solis MD is Attending Physician. snw 09:11 Arm band placed on Patient placed in an exam room, on a stretcher. ll1 09:12 Amy Bailey, RN is Primary Nurse. nj1 09:24 Triage completed. ll1 09:35 Patient has correct armband on for positive identification. Bed in low position. Call nj1 light in reach. Provided Education on: Fall precautions.. 09:57 No provider procedures requiring assistance completed. Patient did not have IV access kc6 during this emergency room visit. Administered Medications: No medications were administered Medication: 09:57 VIS not applicable for this client. kc6 Outcome: 09:49 Discharge ordered by . snw 09:57 Discharged to home ambulatory. kc6 09:57 Condition: improved 09:57 Discharge instructions given to patient, Instructed on discharge instructions, follow up and referral plans. wound care, Demonstrated understanding of instructions, follow-up care, wound care. 09:57 Patient left the ED. kc6 Signatures: Estelita Washington FNP-C IMAGING SPECIALIST-[employer] Kim Parra am2 Beti Morgan RN RN ll1 Soha Ortega RN RN kc6 Amy Bailey RN RN nj1
[2023-05-25 11:45] VITALS: BP 133/93; TEMP 98.1; O2SAT 98
== END 2023-05-25 09:57 | disposition home or self-care (01) ==
LOC: ER 09:02
DX: Z48.00 Encounter for change or removal of nonsurgical wound dressing (principal)

== ENCOUNTER 2023-05-27 09:38 | Emergency (ER) | payer OTHER ==
--- OUTSIDE RECORDS SUMMARY | 2023-05-27 09:47 | XMS REPORT | Continuity of Care Document ---
:1965 Author Organization [facility] t Address [address] [place] [address]. [address] [place] [address] Care Team Providers Name Role Phone Maco Garcia MD Primary Care Physician [phone] Leon Davis MD Attending Clinician Ynes Laguerre MD Attending Clinician August Merchant MD Attending Clinician [facility] Attending Clinician Unavailable Belle Hopkins MD Attending Clinician [phone] Anastasiia Carrillo PA-C Attending Clinician Michelle Cope Attending Clinician Unavailable Thomas Mcnair MD Attending Clinician Phuc Sharp MD Attending Clinician Santiago Bains MD Attending Clinician Casi Burch DO Attending Clinician SARA_Evaristo Attending Clinician Unavailable Boyd Oakley NP Attending Clinician [phone] Thom Beebe MD Attending Clinician Germaine Kenny CRNA Attending Clinician Rip Alvarado Attending Clinician Nurse, Adc Fam Pob I Attending Clinician Unavailable Alvaro Rivera MD Attending Clinician Pcp, Patient Does Not Have A Attending Clinician Lab, Adc Fam Pob I Attending Clinician Unavailable Jessica Leiva Attending Clinician JESSICA BONILLA Attending Clinician Unavailable Doctor Unassigned, [place] Attending Clinician Unavailable PHUC SHARP Admitting Clinician Unavailable SARA_Alec_Eliecer_ Admitting Clinician Unavailable LENO DAVIS Admitting Clinician Unavailable Payers Payer Name Policy Type Policy Number Effective Date Expiration Date Claudia higgins AETNA (POS) [id number] 2002 00:00:00 [employer]ET[employer] CHOICE POS [id number] 2018 00:00:00 II Problems Condition Condition Condition Status Onset Resolution Last Treating Co mments Source Name Details Category Date Date Treatment Clinician Date Elbow pain Elbow pain Disease Active M ethodi 1- [facility] 00:00: Hospita 00 l Paresthesi Paresthesi Disease Active M ethodi a a 12-13 st 00:00: Hospita 00 l 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 12-13 00:00: Hospita 00 l Other Other Disease Active Methodi acute acute 05-08 st pulmonary pulmonary 00:00: Hosp timur embolism embolism 00 l without without acute cor acute cor pulmonale pulmonale Prostate Prostate Disease Active Metho di cancer cancer [address] st 00:00: Hospita 00 l Anxiety Anxiety Disease Active 2020-11 Methodi [facility] 00:00: Hospita 00 l 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 Toradol Toradol Active Dania Sandoval Social History Social Habit Start Date Stop Date Quantity Comments Source Gender identity 2022-03-12 Identifies as male M ethodist 16:50:59 gender (finding) Hospital Sexual orientation 2022-03-12 Heterosexual Meth odist 16:50:59 (finding) Hospital Exposure to Not sure University of SARS-CoV-2 (event) [facility] History of Social 2023-01-17 2023-01-[address] function 00:00:00 00:00:00 Hospital Alcohol intake 2022-12-13 2022-12-13 [employer] 00:00:00 00:00:00 non-drinker Hospital (finding) Tobacco use and 2022-04-13 2022-04-13 Smokeless tobacco Me thodist exposure 00:00:00 00:00:00 non-user Hospital Social History 2020-11-03 2020-11-03 [facility] 21:54:11 21:54:11 Sex Assigned At [birth year] [facility] 00:[facility]00 00:00:00 Hospital Smoking Status Start Date Stop Date Source Unknown if ever smoked [facility] Never smoked tobacco [facility] Medications Ordered Filled Start Stop Current Ordering Indication Dosage Frequency Signature Comments Components Source Medication Medication Date Date Medication? Clinician (SIG) Name Name vacuum Yes 1{devic Q24H 1 Device Meth eduard erection 1-30 e} daily as st device 00:00: needed ( Hospi ta system kit 00 NEEDED). l tadalafiL 2021-11 Yes TAKE ONE Meth eduard (CIALIS) 5 2-[address] MG tablet 00:00: ONE-HALF Hosp timur 00 (1 AND l 1/2) TABLET(S) BY MOUTH DAILY AND 1 TABLET FIVE TIMES ON TUESDAY. gabapentin 2021-11 Yes TAKE ONE Met hodi (NEURONTIN) 2-16 (1) st 300 mg 00:00: CAPSULE(S) Hospi ta capsule 00 BY MOUTH l EVERY EIGHT HOURS. methylPREDN 2021-11 Yes See Admin M ethodi ISolone 2-[address] (MEDROL 00:00: ns. Hospita DOSEPAK) 4 00 l mg tablet TADALAFIL Yes 25mg Q7D Take 25 mg Me thodi ORAL 7-[address] 12:46: once a Hospita 53 week. l Every Tuesday TADALAFIL 2022-0 Yes 7mg Take 7 mg Met hodi ORAL 7-[address] 12:46: take as Hospita 53 directed. l Daily Except Tuesday* TADALAFIL 2022-0 Yes 25mg Q7D Take 25 mg Me thodi ORAL 7-[address] 12:46: once a Hospita 53 week. l Every Tuesday TADALAFIL 2022-0 Yes 7mg Take 7 mg Met hodi ORAL 7-[address] 12:46: take as Hospita 53 directed. l Daily Except Tuesday* acetaminoph 2022-0 Yes 650mg Q6H Take 650 M ethodi en 7-[address] (TYLENOL) 12:44: mouth Hospita 325 MG 44 every 6 l tablet (six) hours as needed for fever. acetaminoph 2022-0 Yes 650mg Q6H Take 650 M ethodi en 7-[address] (TYLENOL) 12:44: mouth Hospita 325 MG 44 every 6 l tablet (six) hours as needed for fever. lansoprazol 2022-0 Yes 15mg Q24H Take 15 mg Methodi e 7-[address] (PREVACID) 12:22: daily as Hos richard 15 MG 09 needed. l capsule ibuprofen 2021-0 Yes 200mg Q6H Take 200 Met hodi (ADVIL) 200 7-[address] MG tablet 12:22: mouth Hospita 09 every 6 l (six) hours as needed for mild pain. lansoprazol 2022-0 Yes 15mg Q24H Take 15 mg Methodi e 7-[address] (PREVACID) 12:22: daily as Hos richard 15 MG 09 needed. l capsule ibuprofen 2022-0 Yes 200mg Q6H Take 200 Met hodi (ADVIL) 200 7-[address] MG tablet 12:22: mouth Hospita 09 every 6 l (six) hours as needed for mild pain. cephalexin 2-0 2022- No 500mg Q.25D Take 1 Me thodi (Keflex) 7-27 - capsule st 500 MG 00:00: 04:59 (500 mg Hospita capsule 00 :00 total) by l mouth 4 (four) times a day for 7 days. cephalexin 2021-2021- No 500mg Q.25D Take 1 Me thodi (Keflex) 06-[address] 500 MG 00:00: 04:59 (500 mg Hospita capsule 00 :00 total) by l mouth 4 (four) times a day for 7 days. apixaban 2021-0 Yes 5mg Q.5D Take 1 Methodi (ELIQUIS) 5 7-04 tablet (5 st mg tablet 00:00: mg total) Hos richard 00 by mouth 2 l (two) times a day. apixaban 202-0 Yes 5mg Q.5D Take 1 Methodi (ELIQUIS) 5 7-04 tablet (5 st mg tablet 00:00: mg total) Hos richard 00 by mouth 2 l (two) times a day. benzonatate 2021-2021- No 100mg Q.05243516 Take 1 Methodi (TESSALON) 05-[id number] 100 MG 00:00: 04:59 3D (100 mg Hospita capsule 00 :00 total) by l mouth 3 (three) times a day as needed for cough for up to 30 days. gabapentin 2021-2021- No 300mg Q.[id number] Take 1 Methodi (NEURONTIN) 05-[id number] 300 mg 00:00: 04:59 3D (300 mg Hospita capsule 00 :00 total) by l mouth 3 (three) times a day for 30 days. polyethylen 2021-2021- No 34g Q.5D Take 34 g Methodi e glycol 05-[address] (MIRALAX) 00:00: 04:59 (two) Hospit a 17 gram 00 :00 times a l packet day for 30 days. methocarbam 2021-2021- No 750mg Q.25D Take 1 M ethodi oL 05-[address] (Robaxin-75 00:00: 04:59 (750 mg Ho spita 0) 750 MG 00 :00 total) by l tablet mouth 4 (four) times a day for 30 days. benzonatate 2021-0 2021- No 100mg Q.[id number] Take 1 Methodi (TESSALON) 05-12- [id number] capsule st 100 MG 00:00: 04:59 3D (100 mg Hospita capsule 00 :00 total) by l mouth 3 (three) times a day as needed for cough for up to 30 days. gabapentin 2021-0 2021- No 300mg Q.81729392 Take 1 Methodi (NEURONTIN) 05-[id number] 300 mg 00:00: 04:59 3D [...] day for 30 days. traMADoL 2021- [place] [address] 50mg Q.10868841 Take 1 Methodi (ULTRAM) 50 05-12- [id number] tablet (50 st mg tablet 00:00: 04:59 3D mg total) Ho spita 00 :00 by mouth 3 l (three) times a day for 10 days .acute pain. [place]DROcodone 2021- No 500[address] 1{tbl} Q6H Take 1 Methodi -acetaminop 05-[address] hen (NORCO) 00:00: 04:59 mouth Hosp timur 5-325 mg 00 :00 every 6 l per tablet (six) hours as needed for moderate pain for up to 10 days .acute pain. Max Daily Amount: 4 tablets apixaban 2021- No 10mg Q.5D Take 2 Method i (ELIQUIS) 5 05-12- tablets st mg tablet 00:00: 04:59 (10 mg Hospi ta 00 :00 total) by l mouth 2 (two) times a day for 4 days. docusate 2021-0 2021- No 100mg Q.5D Take 1 Metho di sodium 04-30-[address] (Colace) 00:00: 04:59 (100 mg Hospi ta 100 MG 00 :00 total) by l capsule mouth 2 (two) times a day for 30 days. docusate 2021-0 2021- No 100mg Q.5D Take 1 Metho di sodium 04-30-[address] (Colace) 00:00: 04:59 (100 mg Hospi ta 100 MG 00 :00 total) by l capsule mouth 2 (two) times a day for 30 days. traMADoL 2021-2021- [place] [address] 50mg Q6H Take 1 Metho di (ULTRAM) 50 04-30-29 tablet (50 s t mg tablet 00:00: 00:00 mg total) Ho spita 00 :00 by mouth l every 6 (six) hours as needed for moderate pain for up to 10 days .acute pain. ciprofloxac 2021-2021- No 500mg Q.5D Take 1 Me thodi in (Cipro) 04-30-[address] 500 MG 00:00: 04:59 (500 mg Hospita tablet 00 :00 total) by l mouth 2 (two) times a day for 5 days. Start taking antibiotic 1 day before your appointmen t for lbanco catheter removal. ciprofloxac 2021-0 2021- No 500mg Q.5D Take 500 Methodi in (CIPRO) 04-27 06-[address] 500 MG 00:00: 00:00 mouth 2 Hospita tablet 00 :00 (two) l times a day. tadalafiL 2021-0 2021- No 5mg QD Take 1 Metho di (CIALIS) 5 5-31 11-28 tablet (5 st MG tablet 00:00: 05:59 mg total) Ho spita 00 :00 by mouth l daily for 180 days. tadalafiL 2021-0 2- No 20mg Q1W Take 1 Metho di (CIALIS) 20 5-31 11-28 tablet (20 s t mg tablet 00:00: 05:59 mg total) Ho spita 00 :00 by mouth l every 7 days for 180 days. tadalafiL 2021- No 5mg QD Take 1 Metho di (CIALIS) 5 04-13-28 tablet (5 st MG tablet 00:00: 05:59 mg total) Ho spita 00 :00 by mouth l daily for 180 days. tadalafiL 2021- No 20mg Q1W Take 1 Metho di (CIALIS) 20 04-13-28 tablet (20 s t mg tablet 00:00: 05:59 mg total) Ho spita 00 :00 by mouth l every 7 days for 180 days. meloxicam Yes TAKE 1 Method i (MOBIC) 7.5 5-[address] mg tablet 00:00: TIMES Hospita 00 DAILU WITH l FOOD AFTER STERIODS ARE COMPLETED meloxicam Yes TAKE 1 Method i (MOBIC) 7.5 5-[address] mg tablet 00:00: TIMES [...] PACK meloxicam 2021- No Methodi (MOBIC) 7.5 -12 19-31 st mg tablet 00:00: 00:00 Hospita 00 :00 l levoFLOXaci 2021- No 750mg Take 750 Methodi n 3-07 19- mg by st (LEVAQUIN) 00:00: 00:00 mouth. Hosp timur 750 MG 00 :00 l tablet methylPREDN 2020-11- No Take as Me thodi ISolone 12-[address] (MEDROL 00:00: 00:00 on Hospita DOSEPAK) 4 00 :00 package. l mg tablet montelukast 2020-11- No 10mg Take 10 mg Methodi (SINGULAIR) 12-[address] 10 mg 00:00: 00:00 Hospita tablet 00 :00 l clonAZEPAM 2021-1 Yes .5mg QD Take 0.5 Met hodi (KlonoPIN) 1-[address] 0.5 MG 00:00: mouth Hospita tablet 00 [facility]. [facility] Last filled: 04/08/22 Quantity: 90 Days Supply: 90Has not restarted since holding five days prior to surgery on 04/30/22 clonAZEPAM 2020-1 Yes .5mg QD Take 0.5 Met hodi [...] MRNA 2022-08-30 Completed Meth odist VACCINATION 00:00:00 [facility] PFIZER COVID-19 MRNA 2022-08-30 Completed Meth odist VACCINATION 00:00:00 [facility] PFIZER COVID-19 MRNA 2021-10-15 Completed Meth odist VACCINATION 00:00:00 [facility] PFIZER COVID-19 MRNA 2021-10-15 Completed Meth odist VACCINATION 00:00:00 [facility] PFIZER COVID-19 MRNA 2021-02-28 Completed Meth odist VACCINATION 00:00:00 [facility] PFIZER COVID-19 MRNA 2021-02-28 Completed Meth odist VACCINATION 00:00:00 [facility] PFIZER COVID-19 MRNA 2021-02-08 Completed Meth odist VACCINATION 00:00:00 [facility] PFIZER COVID-19 MRNA 2021-02-08 Completed Meth odist VACCINATION 00:00:00 Hospital Vital Signs Vital Name Observation Time Observation Value Comments Source Systolic blood 2022-06-11 21:00:00 113 mm[Hg] Method ist Hospital pressure Diastolic blood 2022-06-11 21:00:00 66 mm[Hg] [facility] dist Hospital pressure Heart rate 2022-06-11 21:00:00 61 /min [facility] t Hospital Respiratory rate 2022-06-11 21:00:00 16 /min [facility] odist [facility] Oxygen saturation in 2022-06-11 21:00:00 96 /[facility] Arterial blood by Pulse oximetry Body temperature 2022-06-11 20:21:00 36.78 Bernadette [facility] Body height 2022-06-11 17:51:00 188 cm [facility] Body weight 2022-06-11 17:51:00 99.791 kg [facility] BMI 2022-06-11 17:51:00 28.25 kg/m2 [facility] Systolic (mm Hg) 2021-02-27 19:33:00 Harshad rial [place] Diastolic (mm Hg) 2021-02-27 19:33:00 Mem o[facility] [place] Heart Rate 2021-02-27 19:33:00 [facility] Respitory Rate 2021-02-27 19:33:00 [facility] Weight 2021-02-27 19:33:00 [facility] [place] Systolic (mm Hg) 2020-11-03 21:27:00 Harshad rial Jaime Diastolic (mm Hg) 2020-11-03 21:27:00 Mem [facility]rial [place] Heart Rate 2020-11-03 21:27:00 [facility] [place] Respitory Rate 2020-11-03 21:27:00 [facility] [place] Height 2020-11-03 21:27:00 187.96 cm [facility] [place] Weight 2020-11-03 21:27:00 [facility] BMI Calculated 2020-11-03 21:27:00 Memori al [facility] Procedures Procedure Date / Time Performing Clinician Source Performed US DUPLEX VENOUS LOWER 2023-05-02 16:58:51 Ynes Laguerre [facility] EXTREMITY BILATERAL TESTOSTERONE, TOTAL AND 2023-04-12 20:55:00 Leon Davis [facility] FREE+BIOAVAILABLE, IMMUNOASSAY AND CALCULATION (FOR ADULT MALES) PROSTATE SPECIFIC ANTIGEN 2023-04-12 20:55:00 Leon Davis [facility] (PSA), TOTAL, ULTRASENSITIVE PROSTATE SPECIFIC ANTIGEN 2022-12-13 15:15:00 Leon Davis [facility] (PSA), TOTAL, ULTRASENSITIVE US DUPLEX VENOUS LOWER 2022-09-08 19:30:00 Ynes Laguerre [facility] EXTREMITY BILATERAL PSA, ULTRASENSITIVE 2022-06-28 15:07:00 Leon Davis [facility] IR CATHETER TUBE CHANGE 2022-06-11 20:33:42 [facility]D RECON SLICES 2022-06-11 20:33:42 [facility] SNAPSHOT[facility] RDMPS Anthony IR SCLEROTHERAPY FLUID 2022-06-09 20:14:00 [facility]EL[facility] W CONTRAST 2022-05-21 19:15:00 Hossein Leon [facility] CBC WITH PLATELET AND 2022-05-12 10:21:00 [facility] DIFFERENTIAL BASIC METABOLIC PANEL 2022-05-12 10:21:00 [facility] ESTIMATED GFR 2022-05-12 10:21:00 [facility] SMEAR REVIEW 2022-05-12 10:21:00 [facility] CBC WITH PLATELET AND 2022-05-11 09:16:00 [facility] DIFFERENTIAL BASIC METABOLIC PANEL 2022-05-11 09:16:00 [facility] ESTIMATED GFR 2022-05-11 09:16:00 [facility] PARTIAL THROMBOPLASTIN 2022-05-10 15:20:00 [facility] TIME (PTT) CREATININE LEVEL, [facility] 2022-05-10 10:30:00 En Child [facility] FLUID ZZCOVID-19 ANTI-SPIKE IGG 2022-05-10 08:37:00 Leo [facility] ANTIBODY TITER Farhan CBC WITH PLATELET AND 2022-05-10 08:37:[address] [facility] DIFFERENTIAL BASIC METABOLIC PANEL 2022-05-10 08:37:00 [facility], [facility] ZZCOVID-19 SEROLOGY 2022-05-10 08:37:00 Leo [facility] PATIENT SURVEILLANCE Farhan PARTIAL THROMBOPLASTIN 2022-05-10 08:37:00 [facility] TIME (PTT) ESTIMATED GFR 2022-05-10 08:37:00 Lock, [facility] PARTIAL THROMBOPLASTIN 2022-05-09 23:52:00 [facility], [facility] TIME (PTT) CT GUIDED ABSCESS DRAIN 2022-05-09 17:12:[address] [facility] AEROBIC CULTURE 2022-05-09 16:20:00 Lock, [facility] ANAEROBIC CULTURE 2022-05-09 16:20:00 Lock, [facility] GRAM STAIN 2022-05-09 16:20:00 Lock, [facility] TTE COMPLETE, W CONTRAST, 2022-05-09 14:39:00 Lock, [facility] W DOPPLER ([id number]) PARTIAL THROMBOPLASTIN 2022-05-09 13:32:00 Thomas Mcnair [facility] TIME (PTT) CBC WITH PLATELET AND 2022-05-09 09:02:00 [facility] DIFFERENTIAL BASIC METABOLIC PANEL 2022-05-09 09:02:00 Lock, [facility] ESTIMATED GFR 2022-05-09 09:02:00 [facility], [facility] PARTIAL THROMBOPLASTIN 2022-05-09 04:59:00 Thomas Mcnair [facility] TIME (PTT) US DUPLEX VENOUS LOWER 2022-05-08 18:30:[address] [facility] [place] [place] EXTREMITY BILATERAL LACTIC ACID LEVEL, SEPSIS 2022-05-08 17:17:00 Thomas Mcnair [facility] - NOW AND REPEAT 2X EVERY 3 HOURS PARTIAL THROMBOPLASTIN 2022-05-08 17:17:00 Thomas Mcnair [facility] TIME (PTT) PROTHROMBIN TIME WITH INR 2022-05-08 17:17:00 [facility] ANTI XA, UNFRACTIONATED 2022-05-08 17:17:00 Thomas Mcnair [facility] CT ABDOMEN PELVIS W 2022-05-08 15:08:29 [facility] ANGIOGRAM PE CHEST 2022-05-08 15:08:07 [facility] BLOOD CULTURE, AEROBIC & 2022-05-08 13:03:00 [facility] ANAEROBIC RESPIRATORY PATHOGEN 2022-05-08 13:03:00 [facility] PANEL WITH COVID-19 RT-PCR LACTIC ACID LEVEL, SEPSIS 2022-05-08 13:03:00 [facility] - NOW AND REPEAT 2X EVERY 3 HOURS BLOOD CULTURE, AEROBIC & 2022-05-08 13:00:00 [facility] ANAEROBIC ECG ED PRELIMINARY 2022-05-08 11:18:28 [facility] INTERPRETATION URINE CULTURE 2022-05-08 10:53:00 [facility] XR ABDOMEN 1 VW PORTABLE 2022-05-08 10:45:00 [facility] XR CHEST 1 VW PORTABLE 2022-05-08 10:36:00 [facility] CBC WITH PLATELET AND 2022-05-08 10:17:00 [facility] DIFFERENTIAL COMPREHENSIVE METABOLIC 2022-05-08 10:17:00 [facility] PANEL LIPASE LEVEL 2022-05-08 10:17:00 [facility] URINALYSIS SCREEN AND 2022-05-08 10:17:00 [facility] MICROSCOPY, WITH REFLEX TO CULTURE ESTIMATED GFR 2022-05-08 10:17:00 [facility] FL CYSTOGRAM MINIMUM 3 VW 2022-05-06 14:05:00 Leon Davis [facility] HEMOGLOBIN 2022-04-30 09:34:00 Eliezer Mccain [facility] HEMATOCRIT 2022-04-30 09:34:00 Eliezer Mccain [facility] BASIC METABOLIC PANEL 2022-04-30 09:34:00 [facility] ESTIMATED GFR 2022-04-30 09:34:00 [facility] 2022-04-29 21:38:00 [facility] HEMOGLOBIN 2022-04-29 21:38:00 [facility] BASIC METABOLIC PANEL 2022-04-29 21:38:00 [facility] ESTIMATED GFR 2022-04-29 21:38:00 [facility] 2022-04-29 19:22:00 Leon Davis [facility] REQUEST NH AN ELECTIVE 2022-04-29 17:53:00 [facility] ENDOTRACHEAL AIRWAY Gena PROSTATECTOMY, 2022-04-29 17:48:00 [facility] LAPAROSCOPIC, ROBOT-ASSISTED HC NERVE BLOCK QUADRATUS 2022-04-29 17:42:07 Thom Isaac [facility] LUMBORUM ABO AND RH CONFIRMATION 2022-04-29 15:37:00 Leon Davis [facility] BY PROTOCOL COVID-19 QUALITATIVE 2022-04-26 18:37:00 [facility] TESTOSTERONE LEVEL, FREE 2022-04-13 15:32:00 RobbinsBoyd reeves [facility] AND TOTAL, MALE Sue TYPE AND SCREEN 2022-04-13 15:32:00 [facility] Sue HIV 1/2 ANTIGEN/ANTIBODY, 2022-04-13 15:32:00 [facility] FOURTH GENERATION, WITH Sue REFLEXES COMPREHENSIVE METABOLIC 2022-04-13 15:32:00 [facility] PANEL Sue CBC WITH PLATELET AND 2022-04-13 15:32:00 RobbinsBoyd [facility] DIFFERENTIAL Sue PROTHROMBIN TIME WITH INR 2022-04-13 15:32:00 [facility] PARTIAL THROMBOPLASTIN 2022-04-13 15:32:00 Robbins [facility] TIME (PTT) Sue ESTIMATED GFR 2022-04-13 15:32:00 CeleBoyd kip Rogers HEMOGLOBIN A1C 2022-04-13 15:32:00 Camilo Rae Cherie Adkins [facility] URINE CULTURE 2022-04-13 15:27:00 CeleBoyd kip Rogers URINALYSIS SCREEN AND 2022-04-13 15:27:00 Robbins [facility] MICROSCOPY, WITH REFLEX Sue TO CULTURE MRI PROSTATE WWO CONTRAST 2022-03-29 00:00:00 Leon Davis [facility] Laminectomy for [facility] decompression and exploration Plan of Care Planned Activity Planned Date Details Comments Source Future Scheduled 2023-05-26 Screening for [facility] Test 14:14:01 malignant neoplasm of colon (procedure) [code = 409462186] Future Scheduled 2023-05-26 Screening for [facility] Test 14:14:01 malignant neoplasm of colon (procedure) [code = 934147413] Future Scheduled 2023-05-26 SHINGLES VACCINES (1 Met [facility] Test 14:14:01 of 2) [code = SHINGLES VACCINES (1 of 2)] Future Scheduled 2023-05-26 COVID-19 VACCINE (5 - [facility] Test 14:14:01 Pfizer series) [code = COVID-19 VACCINE (5 - Pfizer series)] Future Scheduled 2023-05-26 INFLUENZA VACCINE [facility] Test 14:14:01 [code = INFLUENZA VACCINE] Future Scheduled 2023-05-26 Screening for [facility] Test 14:14:01 malignant neoplasm of colon (procedure) [code = 331869271] Future Scheduled 2023-05-26 Screening for [facility] Test 14:14:01 malignant neoplasm of colon (procedure) [code = 676718925] Future Scheduled 2023-05-26 Screening for [facility] Test 14:14:01 malignant neoplasm of colon (procedure) [code = 211558488] Future Scheduled 2023-05-26 Hepatitis C screening [facility] Test 14:14:01 (procedure) [code = 540968536] Future Scheduled 2022-11-15 Pneumococcal Vaccine: [facility] Test 09:26:08 Pediatrics (0 to 5 Years) and At-Risk Patients (6 to 64 Years) (1 - PCV) [code = Pneumococcal Vaccine: Pediatrics (0 to 5 Years) and At-Risk Patients (6 to 64 Years) (1 - PCV)] Future Scheduled 2022-11-15 Hepatitis C screening [facility] Test 09:26:08 (procedure) [code = 877436313] Future Scheduled 2022-11-15 COLONOSCOPY SCREENING [facility] Test 09:26:08 [code = COLONOSCOPY SCREENING] Future Scheduled 2022-11-15 SHINGLES VACCINES (1 Met [facility] Test 09:26:08 of 2) [code = SHINGLES VACCINES (1 of 2)] Future Scheduled 2022-11-15 INFLUENZA VACCINE Method [facility] Test 09:26:08 [code = INFLUENZA VACCINE] Future Scheduled 2022-11-15 COVID-19 VACCINE (5 - [facility] Test 09:26:08 Booster for Pfizer series) [code = COVID-19 VACCINE (5 - Booster for Pfizer series)] Encounters Start End Encounter Admission Attending Care Care Encounter Source Date/Time Date/Time Type Type Clinicians Facility Department ID 2023-05-18 2023-05-18 Telephone Miles, [id number] Methodi 00:00:00 00:00:00 Leon Schilling [address]16.1.[address] 3.430.2.7 Hospit a .3.861076 l .8 2023-05-02 2023-05-02 Hospital Ynes Laguerre 1.2.840.1 [id number] 21 [id number] Methodi 10:15:00 23:59:00 Encounter Karolina 93865.1.[address] 3.430.2.7 Hospit a .3.674361 l .8 2023-05-02 2023-05-02 Outpatient Ynes LAGUERRE [facility] [id number] [place] 00:00:00 00:00:[address] 2023-04-04 2023-04-10 Office Somers, 1.2.840.1 [id number] 1035 Methodi 11:15:00 00:27:46 Visit Leon Schilling [address]108.1.[address] 3.430.2.7 Hospit a .3.679882 l .8 2023-04-07 2023-04-07 Travel 1.2.840.1 1.2.721.008 0364 339985 Methodi 00:00:00 00:00:[address] 3.430.2.7 0.2.7.3.698 Ho spita .3.541761 084.8 l .8 2023-04-04 2023-04-04 Ynes Dejesus 1.2.840.1 [id number] 397 [id number] Methodi 00:00:00 00:00:00 Only Karolina 95610.1.[address] 3.430.2.7 Hospit a .3.853952 l .8 2023-04-04 2023-04-04 [facility] [id number] 741 [place] 00:00:00 00:00:00 LEON Downs3 Method i st 2023-02-15 2023-02-15 Telephone Shonda, 1.2.840.1 [id number] 2100 719776 Methodi 00:00:00 00:00:[address] 3.430.2.7 Hospit a .3.376158 l .8 2022-12-20 2022-12-20 Orders Sari, 1.2.840.1 [id number] 180481 6084 Methodi 00:00:00 00:00:00 Only Dinora 27891.1.[address] 3.430.2.7 Hospit a .3.194873 l .8 2022-12-13 2022-12-13 Office Somers, 1.2.840.1 [id number] 964832 6036 Methodi 09:30:00 10:10:52 Visit Leon Schilling 55962.1.[address] 3.430.2.7 Hospit a .3.059316 l .8 2022-12-13 2022-12-13 Outpatient [facility] [id number] 547 [place] 00:00:00 00:00:[address] 2022-09-08 2022-09-08 Ynes Roche 1.2.840.1 [id number] 21 [id number] Methodi 12:52:06 23:59:00 Encounter Karolina 96850.1.[address] 3.430.2.7 Hospit a .3.987512 l .8 2022-09-08 2022-09-08 Ynes Roche 1.2.840.1 [id number] 21 [id number] Methodi 12:52:06 23:59:00 Encounter Karolina [address]384.1.[address] 3.430.2.7 Hospit a .3.731792 l .8 2022-09-08 2022-09-08 Travel 1.2.840.1 1.2.437.701 9286 709957 Methodi 00:00:00 00:00:[address] 3.430.2.7 0.2.7.3.698 Ho spita .3.451263 084.8 l .8 2022-09-08 2022-09-08 Travel 1.2.840.1 1.2.459.180 5559 761148 Methodi 00:00:00 00:00:[address] 3.430.2.7 0.2.7.3.698 Ho spita .3.355311 084.8 l .8 2022-08-27 2022-08-27 Travel 1.2.840.1 1.2.129.297 3702 360639 Methodi 00:00:00 00:00:[address] 3.430.2.7 0.2.7.3.698 Ho spita .3.583749 084.8 l .8 2022-08-27 2022-08-27 Travel 1.2.840.1 1.2.348.647 6897 643928 Methodi 00:00:00 00:00:[address] 3.430.2.7 0.2.7.3.698 Ho spita .3.173330 084.8 l .8 2022-08-10 2022-08-10 Polly Laguerre M G 1.2.840.1 [id number] 966 [id number] Methodi 00:00:00 00:00:00 Only Karolina 90424.1.[address] 3.430.2.7 Hospit a .3.878748 l .8 2022-08-10 2022-08-10 Ynes Dejesus G 1.2.840.1 [id number] 338 6539393 Methodi 00:00:00 00:00:00 Only Karolina 73800.1.[address] 3.430.2.7 Hospit a .3.445053 l .8 2022-06-28 2022-06-28 Office Miles, 1.2.840.1 [id number] 938645 7895 Methodi 09:15:00 10:01:01 Visit Leon Tonie 18068.1.[address] 3.430.2.7 Hospit a .3.999508 l .8 2022-06-28 2022-06-28 Office Miles, 1.2.840.1 336266559 658388 7968 Methodi 09:15:00 10:01:01 Visit Leon EspanaPreeti 40104.1.[address] 3.430.2.7 Hospit a .3.326283 l .8 2022-06-28 2022-06-28 Travel 1.2.840.1 1.2.822.439 6374 155852 Methodi 00:00:00 00:00:[address] 3.430.2.7 0.2.7.3.698 Ho spita .3.140008 084.8 l .8 2022-06-28 2022-06-28 Travel 1.2.840.1 1.2.414.145 7980 070174 Methodi 00:00:00 00:00:[address] 3.430.2.7 0.2.7.3.698 Ho spita .3.594689 084.8 l .8 2022-06-16 2022-06-16 Travel 1.2.840.1 1.2.696.183 4749 510321 Methodi 00:00:00 00:00:[address] 3.430.2.7 0.2.7.3.698 Ho spita .3.714954 084.8 l .8 2022-06-16 2022-06-16 Travel 1.2.840.1 1.2.809.880 6988 356973 Methodi 00:00:00 00:00:[address] 3.430.2.7 0.2.7.3.698 Ho spita .3.234532 084.8 l .8 2022-06-15 2022-06-15 Telephone Miles, 1.2.840.1 [id number] 2099 142659 Methodi 00:00:00 00:00:00 Leon Schilling 30816.1.[address] 3.430.2.7 Hospit a .3.643203 l .8 2022-06-15 2022-06-15 Telephone Miles, 1.2.840.1 [id number] 2099 982666 Methodi 00:00:00 00:00:00 Leon Schilling 35905.1.[address] 3.430.2.7 Hospit a .3.489440 l .8 2022-06-11 2022-06-11 [facility] 1.2.840.1 [id number] 2 778237777 Methodi 12:08:02 23:59:00 Belle Lackey 68989.1.1 517 s t Anthony 3.430.2.7 Hospit a .3.823519 l .8 2022-06-11 2022-06-11 [facility] 1.2.840.1 [id number] 2 [id number] Methodi 12:08:02 23:59:00 Encounter Belle 89936.1.1 517 s t Anthony 3.430.2.7 Hospit a .3.024685 l .8 2022-06-11 2022-06-11 Travel 1.2.840.1 1.2.242.256 4980 294050 Methodi 00:00:00 00:00:[address] 3.430.2.7 0.2.7.3.698 Ho spita .3.008326 084.8 l .8 2022-06-11 2022-06-11 Travel 1.2.840.1 1.2.353.287 7419 325711 Methodi 00:00:00 00:00:[address] 3.430.2.7 0.2.7.3.698 Ho spita .3.488869 084.8 l .8 2022-06-09 2022-06-09 [facility] 1.2.840.1 [id number] 25497 Methodi 11:08:42 23:59:00 Encounter Leon Schilling 86073.1.1 005 s t 3.430.2.7 Hospit a .3.881353 l .8 2022-06-09 2022-06-09 [place] 53104.2.840.1 [id number] 18892 Methodi 11:08:42 23:59:00 Encounter Leon Schilling 93663.1.1 005 s t 3.430.2.7 Hospit a .3.889895 l .8 2022-06-09 2022-06-09 Orders Gerardo, 1.2.840.1 [id number] 615043 5117 Methodi 00:00:00 00:00:00 Only Anastasiia 74158.1.[address] Zaida 3.430.2.7 Hospit a .3.814962 l .8 2022-06-09 2022-06-09 Travel 1.2.840.1 1.2.122.040 9011 559861 Methodi 00:00:00 00:00:[address] 3.430.2.7 0.2.7.3.698 Ho spita .3.197461 084.8 l .8 2022-06-09 2022-06-09 Orders Gerardo, 1.2.840.1 [id number] Methodi 00:00:00 00:00:00 Only Anastasiia 84965.1.[address] Zaida 3.430.2.7 Hospit a .3.508904 l .8 2022-06-09 2022-06-09 Travel 1.2.840.1 1.2.392.338 2378 860009 Methodi 00:00:00 00:00:[address] 3.430.2.7 0.2.7.3.698 Ho spita .3.596258 084.8 l .8 2022-06-01 2022-06-01 Transcribe Somers, 1.2.840.1 [id number] 895 0711974 Methodi 00:00:00 00:00:00 Orders Leon Schilling 83102.1.[address] 3.430.2.7 Hospit a .3.794313 l .8 2022-06-01 2022-06-01 Travel 1.2.840.1 1.2.750.305 3899 466098 Methodi 00:00:00 00:00:[address] 3.430.2.7 0.2.7.3.698 Ho spita .3.675951 084.8 l .8 2022-06-01 2022-06-01 Transcribe Somers, 1.2.840.1 [id number] 077 1058360 Methodi 00:00:00 00:00:00 Orders Leon Schilling 79207.1.[address] 3.430.2.7 Hospit a .3.709243 l .8 2022-06-01 2022-06-01 Travel 1.2.840.1 1.2.520.263 6148 509383 Methodi 00:00:00 00:00:[address] 3.430.2.7 0.2.7.3.698 Ho spita .3.583919 084.8 l .8 2022-05-26 2022-05-26 Telephone Anatoliy, 1.2.840.1 [id number] 2099 329137 Methodi 00:00:00 00:00:[address] 3.430.2.7 Hospit a .3.882849 l .8 2022-05-26 2022-05-26 Telephone Anatoliy, 1.2.840.1 [id number] 2100 866979 Methodi 00:00:00 00:00:[address] 3.430.2.7 Hospit a .3.783936 l .8 2022-05-21 2022-05-21 Hospital Hossein, 1.2.840.1 438949045 06191 27571 Methodi 13:17:34 23:59:00 Encounter Leon Schilling 67672.1.1 039 s t 3.430.2.7 Hospit a .3.389085 l .8 2022-05-21 2022-05-21 Travel 1.2.840.1 1.2.933.698 7222 174511 Methodi 00:00:00 00:00:[address] 3.430.2.7 0.2.7.3.698 Ho spita .3.224434 084.8 l .8 2022-05-18 2022-05-18 Travel 1.2.840.1 1.2.039.992 2477 797832 Methodi 00:00:00 00:00:[address] 3.430.2.7 0.2.7.3.698 Ho spita .3.364316 084.8 l .8 2022-05-18 2022-05-18 Telephone Hossein, 1.2.840.1 [id number] 2099 530771 Methodi 00:00:00 00:00:00 Leon Schilling 09154.1.[address] 3.430.2.7 Hospit a .3.193967 l .8 2022-05-08 2022-05-12 [facility] Thomas Mcnair 1.2.840.1 03152 1060 0538806406 Methodi 04:24:00 12:53:00 [facility] 44[facility].[address] [facility] 3.430.2.7 H francisco BurchCasi Aaron .3.730286 l .8 2022-05-12 2022-05-12 [facility], .2.840.1 703742660 2100 307829 Methodi 00:00:00 00:00:00 Leon Schilling 57739.1.[address] 3.430.2.7 Hospit a .3.056576 l .8 2022-05-07 2022-05-07 Outpatient FOG_Farhan [facility] 562 340620 [place] 12:00:00 12:00:00 [place] 974058 Orth ope dic Sports Medicin e 2022-05-06 2022-05-06 [facility], .2.840.1 [id number] 42893 12373 Methodi 08:00:00 23:59:00 Encounter Leon Schilling 26416.1.1 456 s t 3.430.2.7 Hospit a .3.492082 l .8 2022-05-06 2022-05-06 Office Cele, 1.2.840.1 352223129 73781 Methodi 09:30:00 10:00:00 Visit Boyd 92996.1.[address] [place] 3.430.2.7 Hospit a .3.739625 l .8 2022-05-06 2022-05-06 Travel 1.2.840.1 1.2.546.054 0890 619823 Methodi 00:00:00 00:00:[address] 3.430.2.7 0.2.7.3.698 Ho spita .3.911380 084.8 l .8 2022-05-01 2022-05-01 [facility]patient [facility] [place] 01:39:00 01:39:00 [place] 450391 Orth ope dic Sports Medicin e 2022-04-29 2022-04-30 [facility], 1.2.840.1 [id number] 19556 43836 Methodi 09:46:00 18:37:00 Encounter Leon Schilling 06496.1.1 975 s t 3.430.2.7 Hospit a .3.926628 l .8 2022-04-29 2022-04-29 Surgery [place], 1.2.840.1 [id number] 321133 4906 Methodi 12:30:00 17:20:00 Leon Schilling [address]44.1.[address] 3.430.2.7 Hospit a .3.194588 l .8 2022-04-29 2022-04-29 Anesthesia MarlinThom 1.2.840.1 [id number] Methodi 12:48:00 16:38:00 Event Germaine Kenny 40886.1.[address] 3.430.2.7 Hospit a .3.910845 l .8 2022-04-26 2022-04-26 [facility], 1.2.840.1 [id number] 883119 4688 Methodi 14:00:00 14:10:00 Leon Schilling [address]7041.1.[address] 3.430.2.7 Hospit a .3.546387 l .8 2022-04-20 2022-04-20 Travel 1.2.840.1 1.2.926.381 5754 653777 Methodi 00:00:00 00:00:[address] 3.430.2.7 0.2.7.3.698 Ho spita .3.225134 084.8 l .8 2022-04-13 2022-04-13 Pre-Admiss [place], 1.2.840.1 130237340 689 5601467 Methodi 12:30:00 13:30:00 ion Leon Schilling 43506.1.[address] Testing 3.430.2.7 Hospit a .3.456998 l .8 2022-04-13 2022-04-13 Office Cele, 1.2.840.1 [id number] 70171 49148 Methodi 08:00:00 08:30:00 Visit Boyd 99750.1.[address] Sue 3.430.2.7 Hospit a .3.671416 l .8 2022-04-13 2022-04-13 Travel 1.2.840.1 1.2.788.017 6237 231970 Methodi 00:00:00 00:00:[address] 3.430.2.7 0.2.7.3.698 Ho spita .3.279646 084.8 l .8 2022-04-01 2022-04-01 Orders Miles, 1.2.840.1 [id number] 934604 0763 Methodi 00:00:00 00:00:00 Only Leon Schilling 97007.1.[address] 3.430.2.7 Hospit a .3.144237 l .8 2022-03-19 2022-03-19 Telephone Miles, 1.2.840.1 [id number] 2099 811564 Methodi 00:00:00 00:00:00 Leon Schilling 33503.1.[address] 3.430.2.7 Hospit a .3.565233 l .8 2022-03-19 2022-03-19 Transcribe Miles, 1.2.840.1 020884759 610 1803757 Methodi 00:00:00 00:00:00 Orders Leon Schilling 64956.1.[address] 3.430.2.7 Hospit a .3.050164 l .8 2022-03-15 2022-03-15 Telephone Miles, 1.2.840.1 [id number] 2099 238972 Methodi 00:00:00 00:00:00 Leon Schilling 15417.1.[address] 3.430.2.7 Hospit a .3.647383 l .8 2022-03-15 2022-03-15 Travel 1.2.840.1 1.2.736.484 9177 169821 Methodi 00:00:00 00:00:[address] 3.430.2.7 0.2.7.3.698 Ho spita .3.837212 084.8 l .8 2022-03-12 2022-03-12 Orders Miles, 1.2.840.1 124834946 831574 5904 Methodi 00:00:00 00:00:00 Only Leon Schilling 35327.1.[address] 3.430.2.7 Hospit a .3.093158 l .8 2022-03-10 2022-03-10 Office Miles, 1.2.840.1 887381797 954090 9958 Methodi 11:00:00 12:20:15 Visit Leon Schilling 30490.1.[address] 3.430.2.7 Hospit a .3.591577 l .8 2022-03-10 2022-03-10 Travel 1.2.840.1 1.2.719.942 6528 610259 Methodi 00:00:00 00:00:[address] 3.430.2.7 0.2.7.3.698 Ho spita .3.563443 084.8 l .8 2021-03-01 2021-03-01 Outpatient [facility] [id number] 037 Univers 13:35:00 13:35:00 [facility] 2021-02-28 2021-02-28 Outpatient [facility] [id number] 138 Univers 13:35:00 13:35:00 [facility] 2021-02-27 2021-02-28 Outpatient nullFlavo MNA 05660 11136 Memoria 19:15:00 04:59:59 r Neurology 03 l Arlen Sandoval 2021-02-27 2021-02-28 Outpatient nullFlavo MNA 79091 36396 Memoria 19:15:00 04:59:59 r Neurology 03 l Arlen Sandoval 2021-02-27 2021-02-27 Outpatient SANJUANITA Alvarado 977 [id number] 14:15:00 23:59:59 Ripmaryuri Real 2021-02-27 2021-02-27 Outpatient MHIE MHIE [id number] 865 Memoria 14:15:00 14:15:00 03 christian Sandoval 2021-02-08 2021-02-08 Outpatient [facility] [id number] 647 Univers 13:40:00 13:40:00 ity [facility] 2020-12-12 2020-12-12 Ambulatory nullFlavo MNA 63487 05268 Memoria 19:00:00 19:00:00 Pre-Reg r Neurology 01 l Kaufman Jaime 2020-12-12 2020-12-12 Ambulatory nullFlavo MNA 53172 98770 Memoria 19:00:00 19:00:00 Pre-Reg r Neurology 01 l Kaufman Jaime 2020-12-12 2020-12-12 Outpatient MHIE MHIE [id number] 865 Memoria 13:00:00 13:00:00 01 christian Jaime 2020-12-12 2020-12-12 Outpatient DEVONTE AlvaradoMISCHER MHMISCHER 330 [id number] 13:00:00 13:00:00 Rip Farhan 2020-11-27 2020-11-27 Outpatient MHIE MHIE [id number] 865 Memoria 08:15:00 08:15:00 02 christian Sandoval 2020-11-27 2020-11-27 Outpatient MHIE MHIE [id number] 865 Memoria 08:15:00 08:15:00 02 christian Sandoval 2020-11-03 2020-11-04 Outpatient nullFlavo MNA [id number] 95251 Memoria 21:30:00 05:59:59 r Neurology 00 l Arlen Sandoval 2020-11-03 2020-11-04 Outpatient nullFlavo MNA 09964 19849 Memoria 21:30:00 05:59:59 r Neurology 00 l Areln Sandoval 2020-11-03 2020-11-03 Outpatient DEVONTE AlvaradoMISCHER MHMISCHER 071 [id number] 15:30:00 23:59:59 Rip 00 Farhan 2020-11-03 2020-11-03 Outpatient MHIE MHIE [id number] 865 Memoria 15:30:00 15:30:00 00 christian Sandoval 2020-10-24 2020-10-24 Telephone Nurse, [facility] 1.2.840.114 [id number] Univers 00:00:00 00:00:00 Fam Pob I Health 350.1.13.10 ity of [place] 4.2.7.2.686 El as Professio [phone] Mi dical nal [address] [employer] 2020-10-18 2020-10-18 Letter VAL Rivera 1.2.840.114 [id number] 73 Univers 00:00:00 00:00:00 (Out) Alvaro H SETH 350.1.13.10 i ty of HOSPITAL 4.2.7.2.686 El as [id number] [address] 2020-10-17 2020-10-17 Telephone Pcp, VAL Mccain.2.609.156 2577 2935 Univers 00:00:00 00:00:00 Patient SETH 350.1.13.10 it y of Does Not HOSPITAL 4[place]7.2.686 [place] [phone] [address] 2020-10-15 2020-10-15 Laboratory Lab, [facility] Pob I [facility] 1.2. 840.114 [id number] Univers 14:30:42 14:50:42 Only Jessica [facility] 350.1.13.10 ity of [place] 4.2.7.2.686 El as Professio [phone] Mi dical nal [address] [place] [address] [employer] 2020-10-15 2020-10-15 Outpatient R CHAD [facility] [id number] 866 Univers 14:40:00 14:40:[address] [facility] 2020-10-15 2020-10-15 Letter Doctor VAL 1.2.840.114 [id number] Univers 00:00:00 00:00:00 (Out) Unassigned, SETH 350.1.13.10 ity of [facility] 4.2.7.2.686 El as [phone] [address] Results Test Description Test Time Test Comments Results Result Comments Source Prostate specific antigen (PSA), total, ultrasensitive 04-15 21:30:00 Test Item Value Reference Range Interpretation Comme nts PSA, ICMA (test code <0.02 ng/mL REFERE NCE RANGES for PSA: LESS = 49736-9) THAN 0.10 ng/mL AFTER RADICAL PROSTATECTOMY. 4.0 ng/mL OR LESS IN HEALTHY MALES WITHOUT PROSTATECTOMY. PSA values obtained with d ifferent assay methods or kits cannot be used interchangeably . This test was performed using the [employer] DxImeth od. PSA, ICMA is not to be used as a diagnosticproce dure without confirmation of the diagnosis by anotherestab lished product or procedure. T he lower limit of accurate rand ntification for this assay is0. 02 ng/mL. PSA values less suzanne n 0.02 ng/mL cannot beaccura tely measured and will be rep orted as less than 0.02ng/mL. Specimens with PSA levels belo w the lower limit ofaccurat e quantification should be consi dered as negative. Inpat ients with a negative result for post prostatectomy P SA,serial monitoring of P SA levels at regular interva ls, alongwith physical examin ations and other tests, may help todetect recurrent prost ate cancer. DIVYA (test code = DIVYA) Performing Organization Information: Site ID: EZ Name: [employer], Address: [address] [place] [address] Director: Kristal Carrion MD,PhD,[facility], total and free+bioavailable, immunoassay and calculation (for adult males)2023-04-15 21:30:00 Test Item Value Reference Range Interpretation Comments Testosterone, total, 510 ng/dL 250-827 adult male (test code = 2986-8) Albumin, S (test code = 4.3 g/dL 3.6-5.1 1751-7) Sex hormone binding 46 nmol/L 22-77 globulin (test code = 95503-8) Testosterone, free (test 52.3 pg/mL 46.0-224.0 code = 2991-8) Testosterone, 102.9 ng/dL 110.0-575.0 L bioavailable (test code = 2990-0) DIVYA (test code = RAC) Performing Organization Information: Site ID: RGA Name: [facility] Address: [address] [place] [address] Director: Guanaco Farias Lab Interpretation (test Abnormal code = 41527-0) [facility], [id number] 13:11:00 Test Item Value Reference Interpretation Comments Range PSA, 0.009 ng/mL 0.000-4.000 Debra ECLIA ultrasensitive methodology.A ccording to (test code = the [place] Ur ological 60536-3) Association, Se rum PSA shoulddecrease and remain at undetectable levels after radicalprostate ctomy. The AUA defines bio chemical recurrence as a n initialPSA valu e 0.200 ng/mL or greate r followed by a subsequentconfi rmatory PSA value 0.200 ng/mL or greater.Values obtained with different assay methods or kits cannot be usedinterchange ably. Results cannot be interpreted as absolute evidenceof the presence or absence of m alignant disease. [facility] (test code = Performed at: [facility]) - [facility] [id number] Director: Rickie Menezes MD, Phone: [phone] [facility] [id number] 23:20:25 Test Item Value Reference Range Interpretation Comments Case number (test [id number] code = 1674139) Surgical pathology See link below for PDF report (test code = Lab Report 2255) Result status (test This is Supplemental code = 3816301) [facility] [id number] [facility] [id number] 13:13:00 Test Item Value Reference Range Interpretation Comments Anaerobic No anaerobic Specimen culture isolate organisms InformationS pecimen (test code = isolated. Source: FluidSp ecimen 45088-4) [facility] [id number] 19:24:00 Test Item Value Reference Range Interpretation Comments Aerobic culture No growth Specimen isolate (test after 3 days. InformationSp ecimen code = 24187-4) Source: Flui dSpecimen Site[facility] [id number] 19:59:00 Test Item Value Reference Range Interpretation Comments Gram stain No organisms Specimen isolate (test seen InformationSpe cimen code = 1469) Source: FluidSp ecimen [facility] [id number] 18:16:00 Test Item Value Reference Range Interpretation Comments Urine culture No growth Specimen isolate (test after 24 InformationSpe cimen code = 55427-0) hours Source: Urin eSpecimen Site: Clean cat [facility] [id number] 03:58:09 Test Item Value Reference Interpretation Comments Range Interpretation (test Negative results do not code = 5307442) preclude COVID-19 infection and should not be used asthe sole basis for treatment or other patient management decisions. Negativeresults must be combined with clinical observations, patient history, andepidemiological information. COVID-19 qualitative Not-Detected Not-Detected RT-PCR result (test code = 30113-4) COVID-19 qualitative See link below for PDF Case Number: RT-PCR (test code = Lab Report [id number] 2532) Church OmiyfuesRIQR-KzO-8 (COVID-19) RNA [Presence] in Respiratory specimen by VERONIKA with probe [id number] 22:58:09 Test Item Value Reference Range Interpretation Comments SARS-CoV-2 (COVID-19) RNA Not detected [Presence] in Respiratory specimen by VERONIKA with probe detection (test code = 00243-3) Whether patient is employed in a Unknown healthcare setting (test code = 76465-8) Whether the patient has symptoms Unknown related to condition of interest (test code = 63045-5) Whether the patient was Unknown hospitalized for condition of interest (test code = 75262-4) Whether the patient was admitted Unknown to intensive care unit (ICU) for condition of interest (test code = 12536-7) Whether patient resides in a Unknown congregate care setting (test code = 55409-7) status (test code = Unknown 55513-0) Date and time of symptom onset Unknown (test code = 29397-5) DEXTER CALHOUN
--- NOTE | 2023-05-27 09:58 | EDPHYS ---
Physician Documentation [facility] Name: Bronson Mirza Age: 57 yrs Sex: Male : 1965 Arrival Date: 05/27/2023 Time: 09:38 Bed Waiting Private MD: Maco Garcia T ED Physician Sanchez Larson HPI: 05/27 10:09 This 57 yrs old Male presents to ER via Ambulatory with complaints of Infected finger. kb 10:09 Pt reports he had an avulsion laceration to left index finger 4 days ago and it was kb treated with cauterization and dermabond at that time. Was seen again due to bandage being adhered to wound on 05/25. Went for follow up with MARCIA today and was told to come back due to discoloration to finger tip. 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 kb 10:05 Skin: Positive for decreased blood flow to tip of left index finger. 10:05 All other systems are negative. Exam: 10:06 Constitutional: This is a well developed, well nourished patient who is awake, alert, kb and in no acute distress. Head/Face: Normocephalic, atraumatic. ENT: Moist Mucous membranes Cardiovascular: Regular rate and rhythm with a normal S1 and S2. No gallops, murmurs, or rubs. No pulse deficits. Respiratory: Respirations even and unlabored. No increased work of breathing. Talking in full sentences MS/ Extremity: Pulses equal, no cyanosis. Neurovascular intact. Full, normal range of motion. Neuro: Awake and alert, GCS 15, oriented to person, place, time, and situation. Moves all extremities. Normal gait. 10:06 Skin: bandaid adhered to left index finger s/p avulsion laceration repair with dermabond. pale skin to very tip of index finger . Vital Signs: 09:48 BP 118 / 99; Pulse 73; Resp 18 S; Temp 98(TE); Pulse Ox 98% on R/A; aa5 MDM: 09:53 Patient medically screened. [facility] 10:08 Data reviewed: vital signs, nurses notes. Management of patient was discussed with the kb following: Discussed with Dr Larson who agrees with follow up with [facility]. Counseling: I had a detailed discussion with the patient and/or guardian regarding: the historical points, exam findings, and any diagnostic results supporting the discharge/admit diagnosis, the need for outpatient follow up, a hand specialist, to return to the emergency department if symptoms worsen or persist or if there are any questions or concerns that arise at home. ED course: Discussed need for follow up with Dr Cain for continued wound care. Pt will continue antibiotics previously prescribed. Pt in agreement with plan of care. Administered Medications: No medications were administered Disposition Summary: 05/27/23 09:57 Discharge Ordered Location: Home kb Condition: Stable kb Diagnosis - Encounter for wound evaluation - avulsion laceration kb Followup: kb - With: Emergency Department - When: As needed - Reason: Worsening of condition Followup: kb - With: Private Physician - When: 2 - 3 days - Reason: Recheck today's complaints, Continuance of care, Re-evaluation by your physician Followup: kb - With: Lux Cain MD - When: 1 - 2 days - Reason: Recheck today's complaints Discharge Instructions: - Discharge Summary Sheet kb - Deep Skin Avulsion kb Forms: - Medication Reconciliation Form kb - Thank You Letter kb - Antibiotic Education kb - Prescription Opioid Use kb - Patient Portal Instructions kb Signatures: Jade Esqueda, TOMC VALARIE-Sanchez Lambert MD MD cha Calderon, Audri, RN RN aa5
--- NOTE | 2023-05-27 09:58 | ER ---
Nurse's Notes [facility] Name: Bronson Mirza Age: 57 yrs Sex: Male : 1965 Arrival Date: 05/27/2023 Time: 09:38 Bed Waiting Private MD: Maco Garcia T Diagnosis: Encounter for wound evaluation - avulsion laceration Presentation: 05/27 09:48 Chief complaint: Patient states: "I was seen by Dr. Andre on Tuesday for a crush aa5 injury to my finger and today I was seen by [facility] and they sent me here because they think my tissue is dying". Coronavirus screen: At this time, the client does not indicate any symptoms associated with coronavirus-19. Ebola Screen: Patient denies travel to an Ebola-affected area in the 21 days before illness onset. Initial Sepsis Screen: Does the patient meet any 2 criteria? No. Patient's initial sepsis screen is negative. Does the patient have a suspected source of infection? No. Patient's initial sepsis screen is negative. Risk Assessment: Do you want to hurt yourself or someone else? Patient reports no desire to harm self or others. Onset of symptoms was May 2023. 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 Vital Signs: 09:48 BP 118 / 99; Pulse 73; Resp 18 S; Temp 98(TE); Pulse Ox 98% on R/A; aa5 ED Course: 09:40 Patient arrived in ED. mr 09:40 Maco Garcia MD is Private Physician. mr 09:48 Jade Esqueda FNP-C is PHCP. kb 09:48 Sanchez Larson MD is Attending Physician. kb 09:48 Arm band placed on. aa5 09:49 Triage completed. aa5 09:53 Sanchez Larson MD is Attending Physician. chandrika 09:56 Jade Esqueda FNP-C is PHCP. kb 09:57 Lux Cain MD is Referral Physician. kb 10:02 No provider procedures requiring assistance completed. Patient did not have IV access aa5 during this emergency room visit. Administered Medications: No medications were administered Outcome: :57 Discharge ordered by . kb 10:02 Discharged to home ambulatory. aa5 10:02 Condition: stable 10:02 Discharge instructions given to patient, Instructed on discharge instructions, follow up and referral plans. Demonstrated understanding of instructions, follow-up care. 10:03 Patient left the ED. jl7 Signatures: Jade Esqueda, WELD FITTER-C WELD FITTER-CkSanchez Lance MD MD cha Rivera, Mary mr Calderon, Audri, RN RN aa5 Nigel Zhu RN RN jl7 Corrections: (The following items were deleted from the chart) 09:51 09:48 Chief complaint: Patient states: "I was seen by Dr. Andre on Tuesday for a aa5 crush injury to my finger and today I was seen by [facility] and they sent me here" aa5 09:51 09:48 Acuity: ADRIENNE 3 aa5 aa5
[2023-05-27 10:07] VITALS: BP 118/99; TEMP 98; O2SAT 98
== END 2023-05-27 10:03 | disposition home or self-care (01) ==
LOC: ER 09:38
DX: Z48.00 Encounter for change or removal of nonsurgical wound dressing (principal)
CPT/HCPCS: 99282

== ENCOUNTER 2024-11-13 14:23 | Emergency (ER) | payer OTHER ==
--- NOTE | 2024-11-13 15:31 | RAD REPORT ---
EXAM:Extremity Venous Uni Ltd HISTORY: Left leg pain TECHNIQUE: Sonographic evaluation left lower extremity performed.Grayscale, color and spectral bassam sis performed on all vessels COMPARISON: None. FINDINGS: Left common femoral, superficial femoral, greater saphenous, popliteal and posterior tibial veins are compressible and demonstrate augmentation. Doppler demonstrates good flow. Superficial vessel within the left calf contains thrombus which appears acute. IMPRESSION: Acute thrombus within a superficial vein within the left calf No evidence of deep venous thrombosis involving the left lower extremity. Follow-up ultrasound in a few days would be helpful for reevaluation.
--- NOTE | 2024-11-13 15:47 | EDPHYS ---
Physician Documentation [facility] Name: Bronson Mirza Age: 59 yrs Sex: Male : 1965 Arrival Date: 11/13/2024 Time: 14:23 Bed 9 Private MD: ED Physician Dino Domingo HPI: 11/13 20:37 This 59 yrs old Male presents to ER via Ambulatory with complaints of Leg Swelling - kb left. 20:37 Pt is a 59 year old male who presents for pain to left calf that started one week ago. kb States he has had a blood clot before and this feels similar. Reports he started taking eliquis when he felt the pain because his dr told him to start it if he ever felt like he had another clot. Denies shortness of breath. States his dr wasn't able to get him in so he was told to come to the ER. . 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 - Infectious Disease History:: Denies. - Social history:: Smoking status: Patient denies any tobacco usage or history of. ROS: 20:37 Constitutional: As per HPI kb Exam: 20:37 Constitutional: This is a well developed, well nourished patient who is awake, alert, kb and in no acute distress. Head/Face: Normocephalic, atraumatic. ENT: Moist Mucous membranes Cardiovascular: Regular rate Respiratory: Respirations even and unlabored. No increased work of breathing. Talking in full sentences Skin: Warm, dry with normal turgor. Normal color. Neuro: Awake and alert, GCS 15, oriented to person, place, time, and situation. 20:37 Musculoskeletal/extremity: Extremities: grossly normal except: noted in the left calf: pain, tenderness, ROM: intact in all extremities, Circulation is intact in all extremities. Sensation intact. Weight bearing: able to fully bear weight, Vital Signs: 14:49 BP 134 / 90; Pulse 74; Resp 16; Temp 97; Pulse Ox 99% ; ko1 MDM: 14:38 Medical Screening Exam initiated kb 20:39 Differential diagnosis: tendonitis, dvt, strain. Data reviewed:. Counseling: I had a kb detailed discussion with the patient and/or guardian regarding the historical points, exam findings, and any diagnostic results supporting the discharge/admit diagnosis, radiology results, the need for outpatient follow up, a family practitioner, to return to the emergency department if symptoms worsen or persist or if there are any questions or concerns that arise at home. 11/13 14:47 Order name: Extremity Venous Unilateral Ltd; Complete Time: 15:33 ko1 Administered Medications: No medications were administered Disposition Summary: 11/13/24 15:46 Discharge Ordered Notes: Location: Home kb Condition: Stable kb Diagnosis - Phlebitis and thrombophlebitis of superficial vessels of left lower extremity kb Followup: kb - With: Emergency Department - When: As needed - Reason: Worsening of condition Followup: kb - With: Private Physician - When: 2 - 3 days - Reason: Recheck today's complaints, Continuance of care, Re-evaluation by your physician Discharge Instructions: - Discharge Summary Sheet kb - Thrombophlebitis kb Forms: - Medication Reconciliation Form kb - Antibiotic Education kb - Prescription Opioid Use kb - Patient Portal Instructions kb - Leadership Thank You Letter kb Addendum: 11/20/2024 06:58 Co-signature as Attending Physician, Dino Domingo MD I reviewed the patient's care r n provided by the Advanced Practice Provider and agree with the diagnosis and treatment plan. Signatures: Dispatcher [employer] [facility] Jade Esqueda, HELP AID-C HELP AID-Ckb Dino Domingo MD MD rn Oliver, Kathy, RN RN ko1 Corrections: (The following items were deleted from the chart) 11/13 14:47 14:47 Extremity Venous Uni Ltd+[email or web address] ordered. [facility] 20:39 20:37 Pt is a 59 year old male who presents for pain to left calf that started one week kb ago. kb
--- NOTE | 2024-11-13 15:47 | ER ---
Nurse's Notes [facility] Name: Bronson Mirza Age: 59 yrs Sex: Male : 1965 Arrival Date: 11/13/2024 Time: 14:23 Bed 9 Private MD: Diagnosis: Phlebitis and thrombophlebitis of superficial vessels of left lower extremity Presentation: 11/13 14:49 Chief complaint: Patient states: left calf pain, feels like it did when I had a blood ko1 clot before. Coronavirus screen: At this time, the client does not indicate any symptoms associated with coronavirus-19. Ebola Screen: No symptoms or risks identified at this time. Initial Sepsis Screen: Does the patient meet any 2 criteria? No. Patient's initial sepsis screen is negative. Does the patient have a suspected source of infection? No. Patient's initial sepsis screen is negative. Risk Assessment: Do you want to hurt yourself or someone else? Patient reports no desire to harm self or others. Onset of symptoms is unknown. 14:49 Method Of Arrival: Ambulatory ko1 14:49 Acuity: ADRIENNE 3 ko1 Triage Assessment: 14:50 General: Appears in no apparent distress. Behavior is calm, cooperative, appropriate ko1 for age. Pain: Complains of pain in left calf. 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 - Infectious Disease History:: Denies. - Social history:: Smoking status: Patient denies any tobacco usage or history of. Screenin:45 [facility] ED Fall Risk Assessment (Adult) History of falling in the last 3 months, ld1 including since admission No falls in past 3 months (0 pts) Confusion or Disorientation No (0 pts) Intoxicated or Sedated No (0 pts) Impaired Gait No (0 pts) Mobility Assist Device Used No (0 pt) Altered Elimination No (0 pt) Score/Fall Risk Level 0 - 2 = Low Risk Oriented to surroundings, Maintained a safe environment, Educated pt \T\ family on fall prevention, incl call for assistance when getting out of bed, Assessed \T\ reinforced patient's understanding of fall precautions, Provided non-skid footwear, Hourly rounding (assess needs \T\ fall precautionary measures) done, Used ambulatory aids as needed (educated on \T\ assisted with), Used gait belt as appropriate. Abuse screen: Denies threats or abuse. Denies injuries from another. Nutritional screening: No deficits noted. Tuberculosis screening: No symptoms or risk factors identified. Assessment: 15:45 General: Appears in no apparent distress. comfortable, Behavior is calm, cooperative, ld1 appropriate for age. Pain: Complains of pain in left leg Pain does not radiate. Pain currently is 7 out of 10 on a pain scale. Quality of pain is described as throbbing. Neuro: Level of Consciousness is awake, alert, obeys commands, Oriented to person, place, time, situation, Appropriate for age. Cardiovascular: Capillary refill < 3 seconds Patient's skin is warm and dry. Respiratory: Airway is patent Respiratory effort is even, unlabored. GI: Abdomen is round non-distended. : No signs and/or symptoms were reported regarding the genitourinary system. EENT: No signs and/or symptoms were reported regarding the EENT system. Derm: No signs and/or symptoms reported regarding the dermatologic system. Vital Signs: 14:49 BP 134 / 90; Pulse 74; Resp 16; Temp 97; Pulse Ox 99% ; ko1 ED Course: 14:29 Patient arrived in ED. im 14:38 Jade Esqueda FNP-C is [facility]. kb 14:38 Dino Domingo MD is Attending Physician. kb 14:50 Triage completed. ko1 14:50 Arm band placed on right wrist. Patient placed in an exam room, on a stretcher, on ko1 pulse oximetry, Patient notified of wait time. 15:21 US Extremity Venous Unilateral Ltd In Process Unspecified. EDMS 15:45 Lou Brink, NORA is Primary Nurse. ld1 15:45 Patient has correct armband on for positive identification. Placed in gown. Bed in low ld1 position. Call light in reach. Side rails up X2. monitoring analyst on. Pulse ox on. NIBP on. Door closed. Noise minimized. Warm blanket given. 15:45 No provider procedures requiring assistance completed. ld1 15:45 Patient did not have IV access during this emergency room visit. ld1 Administered Medications: No medications were administered Medication: 15:45 VIS not applicable for this client. ld1 Outcome: 15:46 Discharge ordered by MD. ponce 15:54 Discharged to home ambulatory, ld1 15:54 Condition: stable 15:54 Discharge instructions given to patient, Instructed on discharge instructions, follow up and referral plans. Demonstrated understanding of instructions, follow-up care, 15:54 Patient left the ED. ld1 Signatures: Dispatcher [employer] EDMS Jade Esqudea, VALARIE-C VALARIE-Lou Rainey RN RN ld1 Tri Penn, NORA RN ko1 Juliana Thomas
[2024-11-13 22:00] VITALS: BP 134/90; TEMP 97; O2SAT 99
== END 2024-11-13 15:54 | disposition home or self-care (01) ==
LOC: ER 14:23
DX: I80.02 Phlebitis and thrombophlebitis of superficial vessels of left lower extremity (principal); Z86.718 Personal history of other venous thrombosis and embolism; Z79.01 Long term (current) use of anticoagulants
CPT/HCPCS: 93971; 99284